=== PATIENT | female | born 2000 | race Hispanic/Latino ===

== ENCOUNTER 2023-05-14 23:47 | Emergency (ER) | payer BC ==
--- OUTSIDE RECORDS SUMMARY | 2023-05-15 00:07 | XMS REPORT | Continuity of Care Document ---
:2000 Author Organization [facility] t Address [address] [facility] [address] [place] [address] Care Team Providers Name Role Phone PCP, PATIENT DOES NOT HAVE A Primary Care Physician Unavaila JULIANNE Perez Attending Clinician Unavailable GREYSON HARRIS Attending Clinician Unavailable HEIDI GAN Attending Clinician Unavailable Heidi Gan MD Attending Clinician Julianne Kirby MD Attending Clinician Doctor Unassigned, [place] Attending Clinician Unavailable JAXON ETIENNE Attending Clinician Unavailable Rios Andrews MD Attending Clinician [phone] [facility] Attending Clinician Unavailable Brandon Munson MD Attending Clinician Deana Caicedo MD Attending Clinician DEANA CAICEDO Attending Clinician Unavailable MAIKEL AZEVEDO Attending Clinician Unavailable Pob, [facility] Attending Clinician Unavailable Julissa Buitrago MD Attending Clinician JULISSA BUITRAGO Attending Clinician Unavailable HEIDI GAN Admitting Clinician Unavailable Heidi Gan MD Admitting Clinician JULIANNE KIRBY Admitting Clinician Unavailable Payers Payer Name Policy Type Policy Number Effective Date Expiration Date S [facility] BCBS FED SELECT [id number] 2005 00:00:00 Problems Condition Condition Condition Status Onset Resolution Last Treating Co mments Source Name Details Category Date Date Treatment Clinician Date Left Left Disease Active Univers breast breast 01-04 ity of lump lump 00:00: [address] Allergies, Adverse Reactions, Alerts Allergy Allergy Status Severity Reaction(s) Onset Inactive Treating Comm ents Source Name Type Date Date Clinician NO KNOWN Drug Active Univers ALLERGIE Class ity of S [facility] Social History Social Habit Start Date Stop Date Quantity Comments Source History SDOH University o f Alcohol Frequency [place] [facility] History SDOH University o f Alcohol Std [place] [facility] Drinks [facility] History SDOH University o f Alcohol Binge [place] [facility] [place] History of Cigarette Smoker Universi ty of tobacco use [facility] Exposure to 2022-05-12 2022-05-22 Not sure [facility] SARS-CoV-2 00:00:00 14:01:00 [facility] (event) [place] Alcohol intake 2022-05-22 2022-05-22 0 /d University of 00:00:00 00:00:00 [facility] Tobacco use and 2022-05-11 2022-05-11 Smokeless tobacco Un iversity of exposure 00:00:00 00:00:[address] [facility] Alcohol Comment 2021-09-28 2021-09-28 social Universit y of 00:00:00 00:00:00 [facility] Sex Assigned At 2000 2000 Universit y of 00:00:00 00:00:00 [facility] Smoking Status Start Date Stop Date Source Smokes tobacco daily 2022-05-11 00:00:00 Univers ity [facility] Never smoked tobacco [facility] Medications Ordered Filled Start Stop Current Ordering Indication Dosage Frequency Signature Comments Components Source Medication Medication Date Date Medication? Clinician (SIG) Name Name lactated 2021-07 Yes 1000mL at 75 Univer s ringers IV 1-15 mL/hr, ity of infusion 18:00[place] 1[place] 1[place] 00 IV Medical Infusion, Branch CONTINUOUS , Starting on Sat05/15/22 at 1200, Until Discontinu ed, Routine, PACU lactated 2021-07 1000mL at 75 Unive rs ringers IV 1-15 11-15 mL/hr, ity of infusion 18:00: 21:52 1,000 mL, Daniel as 1,000 mL 00 :55 IV Medical Infusion, Branch CONTINUOUS , Starting on Sat05/15/22 at 1200, Until Sat05/15/22 at 1552, Routine, PACU FENTanyl PF 2021-07 Yes 25ug 25 mcg, Uni vers (SUBLIMAZE 1-15 Slow IV ity of (PF)) 17:51: Push, [place] injection 01 Q5MIN PRN, Medi tamika 25 mcg 4 doses, Branch Starting on Sat05/15/22 at 1151, Until Discontinu ed, Routine, Pain (scale 4-6), PACU ondansetron 2021-07 Yes 4mg 4 mg, Slow Univers (ZOFRAN 1-15 IV Push, ity of (PF)) 17:51: PRN, 1 [place] injection 4 01 dose, Medical mg Starting Branch on Sat05/15/22 at 1151, Until Discontinu ed, Routine, Nausea and Vomiting (N/V), PACU FENTanyl PF 2021-07- No 25ug 25 mcg, Un jayne (SUBLIMAZE 1-15 11-15 Slow IV ity o f (PF)) 17:51: 21:52 Push, [place] injection 01 :55 Q5MIN PRN, Medi tamika 25 mcg 4 doses, Branch Starting on Sat05/15/22 at 1151, Until Sat05/15/22 at 1552, Routine, Pain (scale 4-6), PACU ondansetron 2021-07- No 4mg 4 mg, Slow Univers (ZOFRAN 1-15 11-15 IV Push, ity of (PF)) 17:51: 21:52 PRN, 1 [place] injection 4 01 :55 dose, Medical mg Starting Branch on Sat05/15/22 at 1151, Until Sat05/15/22 at 1552, Routine, Nausea and Vomiting (N/V), PACU water for 2021-07 Yes PRN, Univers irrigation 1-15 Starting ity o f irrigation 15:49: on Sat [place] solution 05/15/22 Medical at 0949, Branch Until Discontinu ed, Routine, Intra-op hydrogen 2021-07 Yes PRN, Univers peroxide 3 1-15 Starting ity o f % topical 15:49: on e [place] solution 05/15/22 Medical at 0949, Branch Until Discontinu ed, Routine, Intra-op bupivacaine 2021-07 Yes PRN, Univer s (preserv -15 Starting ity of free) 0.5% 15:49: on Sat [place] (SENSORCAIN 00 05/15/22 [facility]) 0.5 at 0949, Branc h % (5 mg/mL) Intra-op 30 mL, NaCl 0.9% (NS) 30 mL water for 2021-07- No PRN, Univers irrigation 07-15 Starting ity of irrigation 15:49: 21:52 on Sat [place] solution 00 :55 05/15/22 Medical at 0949, Branch Until Sat05/15/22 at 1552, Routine, Intra-op hydrogen 2021-07- No PRN, Univers peroxide 3 07-15 Starting ity of % topical 15:49: 21:52 on Sat [place] solution 00 :55 05/15/22 Medical at 0949, Branch Until Sat05/15/22 at 1552, Routine, Intra-op bupivacaine 2021-07- No PRN, Unive rs (preserv 07-15 Starting ity of free) 0.5% 15:49: 21:52 on Sat [place] (SENSORCAIN 00 :55 05/15/22 [facility]) 0.5 at 0949, Branc h % (5 mg/mL) Intra-op 30 mL, NaCl 0.9% (NS) 30 mL lactated 2021-07- No 1000mL at 42 Unive rs ringers IV 1-15 11-15 mL/hr, ity of infusion 14:00: 14:13 1,000 mL, [place] as 1,000 mL 00 :00 IV Medical Infusion, Branch ONCE, 1 dose, On Sat05/15/22 at 0800, Routine, DSU Pre-op lactated 2021-07- No 1000mL at 42 Unive rs ringers IV 1-15 11-15 mL/hr, ity of infusion 14:00: 14:13 1,000 mL, [place] as 1,000 mL 00 :00 IV Medical Infusion, Branch ONCE, 1 dose, On 11/15/22 at 0800, Routine, DSU Pre-op acetaminoph 2021-07 Yes [id number] 1000mg Take 2 Univers en 500 mg 1-15 [id number] tablets by it y of tablet 00:00: mouth [place] 00 every 8 Medical (eight) Branch hours. celecoxib 2021-07 Yes [id number] 100mg Take 1 Univers (CELEBREX) 1-15 184054 capsule by i ty of 100 mg 00:00: mouth in [place] capsule 00 the Medical morning Branch and 1 capsule in the evening. Take with meals. acetaminoph 2021-07 Yes [id number] 1000mg Take 2 Univers en 500 mg 1-15 [id number] tablets by it y of tablet 00:00: mouth [place] 00 every 8 Medical (eight) Branch hours. celecoxib 2021-07 Yes [id number] 100mg Take 1 Univers (CELEBREX) 1-15 [id number] capsule by i ty of 100 mg 00:00: mouth in [place] capsule 00 the Medical morning Branch and 1 capsule in the evening. Take with meals. acetaminoph 2021-07 Yes [id number] 1000mg Take 2 Univers en 500 mg 1-15 [id number] tablets by it y of tablet 00:00: mouth [place] 00 every 8 Medical (eight) Branch hours. celecoxib 2021-07 Yes [id number] 100mg Take 1 Univers (CELEBREX) 1-15 [id number] capsule by i ty of 100 mg 00:00: mouth in [place] capsule 00 the Medical morning Branch and 1 capsule in the evening. Take with meals. acetaminoph 2021-07 Yes [id number] 1000mg Take 2 Univers en 500 mg 1-15 [id number] tablets by it y of tablet 00:00: mouth [place] 00 every 8 Medical (eight) Branch hours. celecoxib 2021-07 Yes [id number] 100mg Take 1 Univers (CELEBREX) 1-15 [id number] capsule by i ty of 100 mg 00:00: mouth in [place] capsule 00 the Medical morning Branch and 1 capsule in the evening. Take with meals. acetaminoph 2021-07 Yes [id number] 1000mg Take 2 Univers en 500 mg 1-15 [id number] tablets by it y of tablet 00:00: mouth [place] 00 every 8 Medical (eight) Branch hours. celecoxib 2021-07 Yes [id number] 100mg Take 1 Univers (CELEBREX) 1-15 [id number] capsule by i ty of 100 mg 00:00: mouth in [place] capsule 00 the Medical morning Branch and 1 capsule in the evening. Take with meals. HYDROcodone 2021-07 4647 1{tbl} Take 1 U nivers -acetaminop 1-15 11-23 tablet by it y of hen 5-325 00:00: 05:59 mouth [place] mg tablet 00 :00 every 6 Medical (six) Branch hours as needed for Pain (scale 4-6) or Pain (scale 7-10) for up to 7 days. Indication s: acute pain HYDROcodone 2021-07 4647 1{tbl} Take 1 U nivers -acetaminop 1-15 11-23 tablet by it y of hen 5-325 00:00: 05:59 mouth [place] mg tablet 00 :00 every 6 Medical (six) Branch hours as needed for Pain (scale 4-6) or Pain (scale 7-10) for up to 7 days. Indication s: acute pain HYDROcodone 2021-0747 1{tbl} Take 1 U nivers -acetaminop 1-15 11-23 tablet by it y of hen 5-325 00:00: 05:59 mouth [place] mg tablet 00 :00 every 6 Medical (six) Branch hours as needed for Pain (scale 4-6) or Pain (scale 7-10) for up to 7 days. Indication s: acute pain HYDROcodone 2021-07 4647 1{tbl} Take 1 U nivers -acetaminop 1-15 11-23 tablet by it y of hen 5-325 00:00: 05:59 mouth [place] mg tablet 00 :00 every 6 Medical (six) Branch hours as needed for Pain (scale 4-6) or Pain (scale 7-10) for up to 7 days. Indication s: acute pain HYDROcodone 2021-07 4647 1{tbl} Take 1 U nivers -acetaminop 1-15 11-23 tablet by it y of hen 5-325 00:00: 05:59 mouth [place] mg tablet 00 :00 every 6 Medical (six) Branch hours as needed for Pain (scale 4-6) or Pain (scale 7-10) for up to 7 days. Indication s: acute pain norethindro 2021- Yes [id number] 1{tbl} Take 1 Univers ne-ethinyl 7-01 tablet by ity of estradiol 00:00: mouth [place] (LOESTRIN 00 daily. Medical ,) Branch 1-20 mg-mcg per tablet norethindro 2022-0 Yes [id number] 1{tbl} Take 1 Univers ne-ethinyl 7-01 tablet by ity of estradiol 00:00: mouth [place] (LOESTRIN 00 daily. Medical ,) Branch 1-20 mg-mcg per tablet norethindro 2022-0 Yes [id number] 1{tbl} Take 1 Univers ne-ethinyl 7-01 tablet by ity of estradiol 00:00: mouth [place] (LOESTRIN 00 daily. Medical ,) Branch 1-20 mg-mcg per tablet norethindro 2022-0 Yes [id number] 1{tbl} Take 1 Univers ne-ethinyl 7-01 tablet by ity of estradiol 00:00: mouth [place] (LOESTRIN 00 daily. Medical ,) Branch 1-20 mg-mcg per tablet norethindro 2022-0 Yes [id number] 1{tbl} Take 1 Univers ne-ethinyl 7-01 tablet by ity of estradiol 00:00: mouth [place] (LOESTRIN 00 daily. Medical ,) Branch 1-20 mg-mcg per tablet norethindro 2022-0 Yes [id number] 1{tbl} Take 1 Univers ne-ethinyl 7-01 tablet by ity of estradiol 00:00: mouth [place] (LOESTRIN 00 daily. Medical ,) Branch 1-20 mg-mcg per tablet norethindro 2022-0 Yes [id number] 1{tbl} Take 1 Univers ne-ethinyl 7-01 tablet by ity of estradiol 00:00: mouth [place] (LOESTRIN 00 daily. Medical ,) Branch 1-20 mg-mcg per tablet norethindro 2022-0 Yes [id number] 1{tbl} Take 1 Univers ne-ethinyl 7-01 tablet by ity of estradiol 00:00: mouth [place] (LOESTRIN 00 daily. Medical ,) Branch 1-20 mg-mcg per tablet metroNIDAZO 2-0 Yes [id number] 500mg Take 1 Univers LE 500 mg 4-01 tablet by ity o f tablet 00:00: mouth [place] 00 every 12 Medical (twelve) Branch hours. metroNIDAZO 2-0 Yes [id number] 500mg Take 1 Univers LE 500 mg 4-01 tablet by ity o f tablet 00:00: mouth [place] 00 every 12 Medical (twelve) Branch hours. metroNIDAZO 2-0 Yes [id number] 500mg Take 1 Univers LE 500 mg 4-01 tablet by ity o f tablet 00:00: mouth [place] 00 every 12 Medical (twelve) Branch hours. metroNIDAZO 2-0 Yes [id number] 500mg Take 1 Univers LE 500 mg 4-01 tablet by ity o f tablet 00:00: mouth [place] 00 every 12 Medical (twelve) Branch hours. metroNIDAZO 2-0 Yes [id number] 500mg Take 1 Univers LE 500 mg 4-01 tablet by ity o f tablet 00:00: mouth [place] 00 every 12 Medical (twelve) Branch hours. metroNIDAZO 2-0 Yes [id number] 500mg Take 1 Univers LE 500 mg 4-01 tablet by ity o f tablet 00:00: mouth [place] 00 every 12 Medical (twelve) Branch hours. metroNIDAZO 2-0 Yes [id number] 500mg Take 1 Univers LE 500 mg 4-01 tablet by ity o f tablet 00:00: mouth [place] 00 every 12 Medical (twelve) Branch hours. metroNIDAZO 2-0 Yes [id number] 500mg Take 1 Univers LE 500 mg 4-01 tablet by ity o f tablet 00:00: mouth [place] 00 every 12 Medical (twelve) Branch hours. ISOtretinoi 2020-0 Yes 30mg Take 1 Univ ers n 30 mg 3-18 capsule by ity of capsule 00:00: mouth [place] 00 daily. Medical Branch ISOtretinoi 2020-0 Yes 30mg Take 1 Univ ers n 30 mg 3-18 capsule by ity of capsule 00:00: mouth [place] 00 daily. Medical Branch ISOtretinoi 202-0 Yes 30mg Take 1 Univ ers n 30 mg 3-18 capsule by ity of capsule 00:00: mouth [place] 00 daily. Medical Branch ISOtretinoi 2020-0 Yes 30mg Take 1 Univ ers n 30 mg 3-18 capsule by ity of capsule 00:00: mouth [place] 00 daily. Medical Branch ISOtretinoi 0 Yes 30mg Take 1 Univ ers n 30 mg 3-18 capsule by ity of capsule 00:00: mouth [place] 00 daily. Medical Branch ISOtretinoi 2020-0 Yes 30mg Take 1 Univ ers n 30 mg 3-18 capsule by ity of capsule 00:00: mouth [place] 00 daily. Medical Branch ISOtretinoi 2020-0 Yes 30mg Take 1 Univ ers n 30 mg 3-18 capsule by ity of capsule 00:00: mouth [place] 00 daily. Medical Branch ISOtretinoi 2020-0 Yes 30mg Take 1 Univ ers n 30 mg 3-18 capsule by ity of capsule 00:00: mouth [place] 00 daily. Medical Branch etonogestre 2018-2021- No 68mg 68 mg by U david nolan 12-05 Subdermal ity of (NEXPLANON) 00:00: 00:00 route once [place] 68 mg 00 :00 now. Medical implant Branch PANOXYL 10 2018-0 Yes Univers % external 3-25 ity of wash 00:00: [place] 00 Medical Branch PANOXYL 10 2018-0 Yes Univers % external 3-25 ity of wash 00:00: [place] 00 Medical Branch PANOXYL 10 2018-0 Yes Univers % external 3-25 ity of wash 00:00: [place] 00 Medical Branch PANOXYL 10 2018-0 Yes Univers % external 3-25 ity of wash 00:00: [place] 00 Medical Branch PANOXYL 10 2019-0 Yes Univers % external 3-25 ity of wash 00:00: [place] 00 Medical Branch PANOXYL 10 2019-0 Yes Univers % external 3-25 ity of wash 00:00: [place] 00 Medical Branch PANOXYL 10 2019-0 Yes Univers % external 3-25 ity of wash 00:00: [place] 00 Medical Branch PANOXYL 10 2018-0 Yes Univers % external 3-25 ity of wash 00:00: [place] 00 Medical Branch Vital Signs Vital Name Observation Time Observation Value Comments Source Systolic blood 2022-05-22 20:19:00 98 mm[Hg] Univer sity of pressure [facility] Diastolic blood 2022-05-22 20:19:00 67 mm[Hg] Unive rsity of pressure [facility] Heart rate 2022-05-22 20:19:00 81 /min [facility] [place] [facility] Body temperature 2022-05-22 20:19:00 36.61 Liudmila Univ ers[facility] [place] [facility] Respiratory rate 2022-05-22 20:19:00 16 /min Univ ers[facility] [place] [facility] Body height 2022-05-22 20:19:00 152.4 cm [facility] [place] [facility] Body weight 2022-05-22 20:19:00 54.795 kg [facility] [place] [facility] BMI 2022-05-22 20:19:00 23.59 kg/m2 [facility]i [facility] [place] [facility] Oxygen saturation in 2022-05-22 20:19:00 99 /min University of Arterial blood by [place] Medi tamika Pulse oximetry Branch Heart rate 2022-05-15 19:34:00 71 /min [facility]i ty [facility] [place] [facility] Respiratory rate 2022-05-15 19:34:00 18 /min Univ ersity [facility] [place] [facility] Oxygen saturation in 2022-05-15 19:34:00 99 /min University of Arterial blood by [place] [employer] tamika Pulse oximetry Branch Systolic blood 2022-05-15 19:28:00 98 mm[Hg] Univer sity of pressure [place] [facility] Diastolic blood 2022-05-15 19:28:00 61 mm[Hg] Unive rsity of pressure [place] [facility] Body temperature 2022-05-15 18:02:00 37.11 Liudmila Univ [facility] [place] [facility] Body height 2022-05-11 14:39:00 152.4 cm [facility]i ty [facility] [place] [facility] Body weight 2022-05-11 14:39:00 55.9 kg [facility] [place] [facility] BMI 2022-05-11 14:39:00 24.07 kg/m2 [facility] [place] [facility] Systolic blood 2022-05-15 13:59:00 114 mm[Hg] Univer sity of pressure [place] [facility] Diastolic blood 2022-05-15 13:59:00 85 mm[Hg] Unive rsity of pressure [place] [facility] Heart rate 2022-05-15 13:59:00 71 /min [facility]i ty [facility] [place] [facility] Body temperature 2022-05-15 13:59:00 36.67 Liudmila Univ [facility] [place] [facility] Respiratory rate 2022-05-15 13:59:00 17 /min Univ [facility]ity [facility] [place] [facility] Oxygen saturation in 2022-05-15 13:59:00 98 /min University of Arterial blood by [facility] tamika Pulse oximetry Branch Body height 2022-05-11 14:39:00 152.4 cm Universi ty [facility] [place] [facility] Body weight 2022-05-11 14:39:00 55.9 kg [facility] [place] [facility] BMI 2022-05-11 14:39:00 24.07 kg/m2 [facility] [place] [facility] Systolic blood 2022-05-08 19:53:00 101 mm[Hg] Univer sity of pressure [place] [facility] Diastolic blood 2022-05-08 19:53:00 68 mm[Hg] Unive rsity of pressure [place] [facility] Heart rate 2022-05-08 19:53:00 69 /min [facility] [place] [facility] Body temperature 2022-05-08 19:53:00 36.56 Liudimla Univ [facility] [place] [facility] Respiratory rate 2022-05-08 19:53:00 16 /min Univ [facility] [place] [facility] Body height 2022-05-08 19:53:00 152.4 cm [facility] [place] [facility] Body weight 2022-05-08 19:53:00 55.883 kg [facility] [place] [facility] BMI 2022-05-08 19:53:00 24.06 kg/m2 [facility] [place] [facility] Oxygen saturation in 2022-05-08 19:53:00 97 /min University of Arterial blood by [facility] Pulse oximetry Branch Systolic blood 2021-12-29 13:43:00 103 mm[Hg] Univer sity of pressure [place] [facility] Diastolic blood 2021-12-29 13:43:00 68 mm[Hg] Unive rsity of pressure [place] [facility] Heart rate 2021-12-29 13:43:00 62 /min [facility] [place] [facility] Body temperature 2021-12-29 13:43:00 36.83 Liudmila Univ [facility] [place] [facility] Respiratory rate 2021-12-29 13:43:00 18 /min Univ [facility] [place] [facility] Body height 2021-12-29 13:43:00 152.4 cm [facility] [place] [facility] Body weight 2021-12-29 13:43:00 56.7 kg [facility] BMI 2021-12-29 13:43:00 24.41 kg/m2 [facility] Procedures Procedure Date / Time Performed Performing Clinician Sourc e [place] TIME OR 2022-05-15 17:04:13 Heidi Gan [facility] (NON-REPORTABLE) Medical Branch FL TIME OR 2022-05-15 17:04:13 Heidi Gan [facility] (NON-REPORTABLE) Medical [place] BREAST LUMPECTOMY 2022-05-15 15:06:00 Heidi Gan [facility] DAY SURGERY - ADC 2022-05-15 06:01:00 Doctor Unassigned, No [facility] [place] Name Medical Branch CONSENT/REFUSAL FOR 2022-05-09 06:01:00 Doctor Unassigned, No Un [facility] [place] DIAGNOSIS AND Name Medical Branch TREATMENT DISCLOSURE AND 2022-05-09 06:01:00 Doctor Unassigned, No Univer sity of [place] CONSENT, MEDICAL AND Name Medical [facility] SURGICAL PROCEDURES CONSENT/REFUSAL FOR 2022-05-09 06:01:00 Doctor Unassigned, No Un iversity of [place] DIAGNOSIS AND Name Medical Branch TREATMENT DISCLOSURE AND 2022-05-09 06:01:00 Doctor Unassigned, No Univer sity of [place] CONSENT, MEDICAL AND Name Medical Bra [facility] SURGICAL PROCEDURES DISCLOSURE AND 2022-05-08 06:01:00 Doctor Unassigned, No Univer sity of [place] CONSENT, MEDICAL AND Name Medical Bra [facility] SURGICAL PROCEDURES DISCLOSURE AND 2022-05-08 06:01:00 Doctor Unassigned, No Univer sity of [place] CONSENT, MEDICAL AND Name Medical Bra [facility] SURGICAL PROCEDURES Encounters Start End Encounter Admission Attending Care Care Encounter Source Date/Time Date/Time Type Type Clinicians Facility Department ID 2022-12-21 2022-12-21 Outpatient Angy KIRBY [facility] [id number] Univers 15:00:00 15:00:00 JULIANNE barrios [facility] 2022-10-18 2022-10-18 Outpatient CARMEN MORALES [id number] [place] 12:14:02 12:14:02 [id number] F [place] 2022-10-15 2022-10-15 Outpatient CARMEN MORALES [id number] [place] 13:24:50 13:24:50 [id number] F [place] 2022-05-22 2022-05-22 [facility] [id number] Univers 14:15:00 15:03:07 HEIDI barrios [facility] 2022-05-22 2022-05-22 Office [facility] [id number] Univers 14:15:00 15:03:07 Visit Heidi BONILLATON [id number] i ty of [place] [id number] PROF[place] [id number] Oh dical NAL 419 [facility] 2022-05-22 2022-05-22 [facility] [id number] Univers 00:00:00 00:00:00 (Out) Heidi Annika IRENETON [id number] i ty [place] [id number] [id number] Oh dicma NAL [address] [place] [address] 2022-05-15 2022-05-15 Outpatient [facility] [id number] Univers 07:51:00 13:50:00 HEIDI barrios [facility] 2022-05-15 2022-05-15 [facility] [id number] Univers 07:51:00 13:50:00 Encounter Heidi Annika IREN[place] [id number] ity [id number] SURGICAL [id number] [facility] 071 [place] 2022-05-15 2022-05-15 Surgery [facility] [id number] Univers 09:17:00 11:41:00 Heidi Annika [place] [id number] i ty [id number] SURGICAL [id number] [facility] 020 [place] 2022-05-08 2022-05-08 Outpatient R [facility] [id number] Univers 13:30:00 15:19:14 [facility] 2022-05-08 2022-05-08 Office [facility] [id number] Univers 13:30:00 15:19:14 Visit Heidi RUIZ [id number] i ty [facility] [id number] [id number] [facility] 419 [facility] 2021-12-29 2021-12-29 [facility] [id number] Univers 08:00:00 09:19:41 Visit Julianne RUIZ [id number] ity [facility] [id number] [id number] Oh dic[address] 2021-12-29 2021-12-29 [facility] [id number] Univers 08:00:00 09:19:41 [facility] 2021-12-29 2021-12-29 Outpatient R [facility] [id number] Univers 08:00:00 08:00:00 [facility] 2021-12-29 2021-12-29 Orders Doctor BROOKS [id number] Univers 00:00:00 00:00:00 Only Unassigned, CLEO [id number] ity of [place] [facility] [id number] Daniel as [id number] [address] 2021-10-23 2021-10-23 Outpatient R [facility] [id number] Univers 10:00:00 10:00:[address] [facility] 2021-10-17 2021-10-17 [facility] [id number] Univers 00:00:00 00:00:00 Julianne RUIZ [id number] ity of [facility] [id number] [id number] Oh dic[address] 2021-10-11 2021-10-11 Outpatient [facility] [id number] Univers 09:00:00 09:00:00 JULIANNE ityessica [facility] 2021-09-29 2021-09-29 Case Ad, [facility] [id number] Univers 00:00:00 00:00:00 Management Julianne RUIZ [id number] ity of [id number] [id number] Oh dical NAL [address] [place] [address] 2021-09-28 2021-09-28 Outpatient R ADUM, [facility] [id number] Univers 10:30:00 11:34:56 JULIANNE ity [facility] 2021-09-28 2021-09-28 Office Ad, [facility] [id number] Univers 10:30:00 11:34:56 Visit Julianne RUIZ [id number] ity [facility] [id number] [id number] Oh dical [address] 2021-09-28 2021-09-28 Outpatient R ADUM, [facility] [id number] Univers 10:30:00 11:34:56 JULIANNE ity [facility] 2021-09-28 2021-09-28 Office Ad, [facility] [id number] Univers 10:30:00 11:00:00 Visit Julianne RUIZ [id number] ity [facility] [id number] [id number] Oh dical NAL [address] [place] [address] 2021-09-28 2021-09-28 Outpatient R ADUM, [facility] [id number] Univers 10:30:00 10:30:00 JULIANNE ity [facility] 2021-09-28 2021-09-28 Outpatient R ADUM, [facility] [id number] Univers 10:30:00 10:30:00 JULIANNE ity [facility] 2021-09-28 2021-09-28 Letter Ad, [facility] [id number] Univers 00:00:00 00:00:00 (Out) Julianne BONILLATON [id number] ity of [facility] [id number] [phone] [place] dical NAL 134 [facility] 2021-09-07 2021-09-07 Outpatient R AD, [facility] [id number] Univers 14:00:00 14:00:00 JULIANNE ityessica [facility] 2020-12-23 2020-12-23 Outpatient R AD, [facility] [id number] Univers 09:00:00 09:00:00 JULIANNE ity [facility] 2020-12-19 2020-12-19 Outpatient R AD, [facility] [id number] Univers 09:00:00 09:00:00 [facility]-10-[facility] 2020-10-20 Outpatient R JAIMIE, [facility] [id number] Univers 10:45:00 10:45:00 JAXON barrios [facility] 2020-10-19 2020-10-19 [facility] 1.2.840.114 [id number] Univers 11:00:43 11:39:59 Visit Julianne Sara Ruiz [id number] it[id number] [phone] [place] dic[address] 2020-10-19 2020-10-19 [facility] [id number] Univers 11:00:00 11:00:00 JULIANNE barrios [facility] 2020-09-15 2020-09-15 Telephone [facility] 1.2.840.114 [id number] Univers 00:00:00 00:00:00 Rios DAWKINSPEC [id number] [id number] [phone] [address] [facility] 2020-09-15 2020-09-15 Telephone [facility] [id number] Univers 00:00:00 00:00:00 Rios DAWKINSPEC [id number] [id number] [phone] [address] [facility] 2020-09-12 2020-09-12 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 10 it[place] of [place] [id number] [facility] [phone] [address] [facility] 2020-08-11 2020-08-11 Outpatient Angy CAICEDO [facility] [id number] Univers 16:30:00 16:30:00 DEANA [facility] 2020-08-05 2020-08-05 Outpatient Angy CAICEDO [facility] [id number] Univers 10:00:00 10:00:00 DEANA [facility] 2020-08-04 2020-08-04 [facility] [id number] Univers 15:40:00 15:40:00 [facility]04 2020-08-04 Orders Doctor GUY 1.2.840.114 [id number] Univers 00:00:00 00:00:00 Only Unassigned, CLEO [id number] ity of [place] [facility] [id number] Daniel as [phone] [address] 2020-03-01 2020-03-01 Office [facility] [id number] Univers 14:16:02 14:31:02 Visit Heidi Roblero Kb [id number] i ty of [id number] [phone] Oh dic[address] 2020-03-01 2020-03-01 [facility] [id number] Univers 14:15:00 14:15:00 HEIDI [facility] 2020-02-23 2020-02-23 [facility] [id number] Univers 14:00:00 14:00:00 HEIDI [facility] 2020-02-16 2020-02-16 Office [facility] [id number] Univers 13:35:47 15:46:51 Visit Heidi Annika Kb [id number] i ty [id number] [phone] [address] 2020-02-16 2020-02-16 [facility] [id number] Univers 13:30:00 13:30:00 HEIDI [facility] 2020-02-16 2020-02-16 Orders Doctor GUY 1.2.840.114 [id number] Univers 00:00:00 00:00:00 Only Unassigned, CLEO [id number] ity of [place] [facility] [id number] Daniel as [phone] [address] 2020-02-09 2020-02-09 Outpatient [facility] [id number] Univers 16:00:00 16:00:00 HEIDI barrios [facility] 2020-01-28 2020-01-28 Outpatient R JOLLY [facility] [id number] Univers 13:30:00 13:30:00 MAIKEL ity [facility] 2020-01-05 2020-01-05 Outpatient R AD, [facility] [id number] Univers 14:00:00 14:00:00 JULIANNE ity [facility] 2020-01-05 2020-01-05 [facility] 1.2.840.114 [id number] Univers 08:04:46 08:34:46 ne Visit Julianne Nolan Molena [id number] it[place] of [id number] [phone] Oh dic[address] 2019-12-24 2019-12-24 Outpatient R AD, [facility] [id number] Univers 11:30:20 23:59:00 JULIANNE ity [facility] 2019-12-24 2019-12-24 [facility] 1.2.840.114 [id number] Univers 11:30:00 23:59:00 Encounter Julianne Nolan Molena [id number] it[place] of [id number] [phone] [facility] [address] [place] [address] 2019-12-17 2019-12-17 [facility] [id number] Univers 00:00:00 00:00:00 Julianne Sara Molena [id number] ity of [id number] [phone] Oh dical nal [address] [place] [address] 2019-12-16 2019-12-16 [facility] 1.2.840.114 [id number] Univers 00:00:00 00:00:00 Management Julianne Nolan Molena [id number] ity of [id number] [phone] Oh dicma nal [address] [place] [address] 2019-12-15 2019-12-15 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 Froylan, [facility] [id number] [id number] Univers 17:00:06 17:15:06 Visit Julissa Buitrago [id number] ity of [place] [id number] [place] Professio [phone] Oh dical nal [address] [facility] 2019-12-15 2019-12-15 Office Julianne Kirby [facility] 1.2.840.114 [id number] Univers 15:21:57 16:43:33 Visit Julissa Buitrago Kb [id number] ity of [id number] [phone] [facility] 134 [facility] 2019-12-15 2019-12-15 Outpatient R JULISSA BUITRAGO [facility] [id number] Univers 15:00:00 15:00:[address] [facility] 2019-12-15 2019-12-15 Orders Doctor BROOKS [id number] Univers 00:00:00 00:00:00 Only Unassigned, CLEO [id number] ity of [place] [facility] [id number] Daniel as [phone] [address] 2019-10-06 2019-10-06 Telephone Julissa Buitrago [facility] 1.2.840.114 [id number] Univers 00:00:00 00:00:00 Juan Carlos Ruiz [id number] i ty of [id number] [phone] [facility] 134 [facility] Results This patient has no known results.
[2023-05-15] MEDS ORDERED: ONDANSETRON 4 MG/2 ML VIAL ONE (01:04)
[2023-05-15 01:14] LABS: Specific Gravity 1.015 (1.005-1.030)
[2023-05-15 01:15] LABS: Absolute Lymphocytes (CBC) 3.5 K/uL (0.7-4.9); Hematocrit 36.9 % (36.0-45.0); MCV 93.3 fL (80-100); MPV 8.3 fL (7.6-11.3); Platelets 270 thou/uL (152-406); RBC Red Blood Cell Count 3.96 M/uL (3.86-4.86)
[2023-05-15 01:22] LABS: Specific Gravity 1.015 (1.005-1.030); Urine Bacteria <20 /HPF (<20); Urine Bilirubin NEGATIVE (Negative); Urine Blood Negative (Negative); Urine Clarity Extremely Turbid (Clear); Urine Color Light-Yellow (Yellow); Urine Glucose NEGATIVE (Negative); Urine Mucus Slight /HPF (None Seen); Urine Protein NEGATIVE (Negative); Urine RBC <5 /HPF (None Seen); Urine Urobilinogen Normal (Normal)
[2023-05-15 01:45] LABS: Potassium 3.5 mEq/L (3.5-5.1)
--- NOTE | 2023-05-15 02:14 | ER ---
Nurse's Notes [facility] Name: Marcela Gudino Age: 22 yrs Sex: Female : 2000 Arrival Date: 05/14/2023 Time: 23:47 Bed 19 Private MD: Diagnosis: Nausea with vomiting, unspecified; related conditions, unspecified, first trimester;Syncope Presentation: 05/15 00:31 Chief complaint: Patient states: pt reports fainting and hitting head at 10AM yesterday km8 morning and now having nausea and vomiting. Coronavirus screen: Client denies travel out of the [place] in the last 14 days. Ebola Screen: No symptoms or risks identified at this time. Initial Sepsis Screen: Does the patient meet any 2 criteria? No. Patient's initial sepsis screen is negative. Does the patient have a suspected source of infection? No. Patient's initial sepsis screen is negative. Risk Assessment: Do you want to hurt yourself or someone else? Patient reports no desire to harm self or others. Onset of symptoms was May 14, 2023. 00:31 Method Of Arrival: Ambulatory km8 00:31 Acuity: ALLIE 3 km8 Triage Assessment: 00:34 General: Appears in no apparent distress. comfortable, Behavior is calm, cooperative, km8 appropriate for age. Pain: Complains of pain in head and abdomen Pain currently is 4 out of 10 on a pain scale. EENT: No signs and/or symptoms were reported regarding the EENT system. Neuro: Level of Consciousness is awake, alert, obeys commands, Oriented to person, place, time, situation. Cardiovascular: Denies chest pain, shortness of breath, Capillary refill < 3 seconds Patient's skin is warm and dry. Respiratory: Airway is patent Respiratory effort is even, unlabored, Respiratory pattern is regular, symmetrical. GI: Abdomen is non-distended, Reports nausea, vomiting. : No signs and/or symptoms were reported regarding the genitourinary system. Derm: No signs and/or symptoms reported regarding the dermatologic system. Skin is intact, is healthy with good turgor, Skin is dry, Skin is pink, warm \T\ dry. normal, Skin temperature is warm. Musculoskeletal: No signs and/or symptoms reported regarding the musculoskeletal system. Range of motion: intact in all extremities. 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 Flu vaccine is not up to date. - Social history:: Smoking status: Patient/guardian denies using tobacco, Patient/guardian denies using alcohol, street drugs. Screenin:38 [facility] ED Fall Risk Assessment (Adult) History of falling in the last 3 months, km8 including since admission No falls in past 3 months (0 pts) Confusion or Disorientation No (0 pts) Intoxicated or Sedated No (0 pts) Impaired Gait No (0 pts) Mobility Assist Device Used No (0 pt) Altered Elimination No (0 pt) Score/Fall Risk Level 0 - 2 = Low Risk Oriented to surroundings, Maintained a safe environment, Educated pt \T\ family on fall prevention, incl call for assistance when getting out of bed, Assessed \T\ reinforced patient's understanding of fall precautions. Abuse screen: Denies threats or abuse. Denies injuries from another. Nutritional screening: No deficits noted. Tuberculosis screening: No symptoms or risk factors identified. Assessment: 00:38 General: see triage notes/assessment. GI: Abdomen is flat, non-distended, Reports km8 nausea, vomiting. 01:14 Reassessment: Patient appears in no apparent distress at this time. No changes from km8 previously documented assessment. Patient and/or family updated on plan of care and expected duration. Pain level reassessed. Patient is alert, oriented x 3, equal unlabored respirations, skin warm/dry/pink. 02:11 Reassessment: Patient appears in no apparent distress at this time. Patient and/or 8 family updated on plan of care and expected duration. Pain level reassessed. Patient is alert, oriented x 3, equal unlabored respirations, skin warm/dry/pink. Patient states symptoms have improved. Vital Signs: 00:03 BP 113 / 63; Pulse 69; Resp 18; Temp 98.6(O); Pulse Ox 100% on R/A; Weight 58.97 kg; oe Height 5 ft. 0 in. ; Pain 0/10; 01:00 BP 111 / 62; Pulse 61; Resp 16; Pulse Ox 100% on R/A; km8 01:30 BP 102 / 55; Pulse 84; Resp 16; Pulse Ox 100% on R/A; km8 02:00 BP 94 / 59; Pulse 61; Resp 16; Pulse Ox 100% on R/A; km8 00:03 Body Mass Index 25.39 (58.97 kg, 152.4 cm) oe 00:03 Pain Scale: Adult oe ED Course: 05/14 23:56 Patient arrived in ED. gm2 23:59 Nelson Guerra PA is PHCP. cp 23:59 Jonh Mckeon MD is Attending Physician. cp 05/15 00:25 Bhumika Abad, ROB is Primary Nurse. km8 00:34 Triage completed. km8 00:34 Arm band placed on right wrist. km8 00:38 Patient has correct armband on for positive identification. Bed in low position. Call km8 light in reach. Side rails up X 1. Client placed on continuous cardiac and pulse oximetry monitoring. NIBP monitoring applied. Door closed. Noise minimized. Warm blanket given. 00:38 Patient maintains SpO2 saturation greater than 95% on room air. km8 00:47 Abo/rh Typing Sent. km8 00:48 Basic Metabolic Panel Sent. 8 00:48 CBC with Diff Sent. km8 00:48 Test, Urine Sent. 8 00:48 Quantitative Hcg Sent. 8 00:48 Urinalysis w/ reflexes Sent. 8 00:48 Inserted saline lock: 20 gauge in right antecubital area, using aseptic technique. km8 Blood collected. 00:50 CT Head Brain wo Cont In Process Unspecified. EDMS 01:39 US Transvaginal Ob In Process Unspecified. EDMS 02:10 Diet: Patient given snack. Tolerated well. km8 02:26 No provider procedures requiring assistance completed. IV discontinued, intact, pf1 bleeding controlled, No redness/swelling at site. Pressure dressing applied. 02:27 Provided Education on: prescription education . pf1 Administered Medications: 00:56 Drug: NS 0.9% IV 1000 ml IV at 1 bolus Per protocol; 1000 mL bolus Route: IV; Rate: 1 km8 bolus; Site: right antecubital; 02:11 Follow up: IV Status: Completed infusion; IV Intake: 1000ml km8 00:56 Drug: Ondansetron IVP 4 mg IVP once; over 2 minutes Route: IVP; Site: right antecubital;km8 01:15 Follow up: Response: No adverse reaction km8 00:56 Drug: Famotidine IVP 20 mg IVP once; dilute with 10 mL 0.9% NaCl; give over 2 minutes km8 Route: IVP; Site: right antecubital; 01:14 Follow up: Response: No adverse reaction km8 Medication: 02:27 VIS not applicable for this client. pf1 Intake: 02:11 IV: 1000ml; Total: 1000ml. km8 Outcome: 02:14 Discharge ordered by MD. cp 02:27 Discharged to home ambulatory, with family, pf1 02:27 Condition: improved 02:27 Discharge instructions given to patient, family, Instructed on discharge instructions, follow up and referral plans. Demonstrated understanding of instructions, follow-up care, medications, Prescriptions given X 1, 02:27 Patient left the ED. pf1 Signatures: Dispatcher [employer] EDMS Nelson Guerra PA PA cp Espinosa, Orlando oe Finley, Pamala, RN RN pf1 Teresita Kothari 2 Bhumika Abad RN RN km8
--- NOTE | 2023-05-15 02:14 | EDPHYS ---
Physician Documentation [facility] Name: Marcela Gudino Age: 22 yrs Sex: Female : 2000 Arrival Date: 05/14/2023 Time: 23:47 Bed 19 Private MD: ED Physician Jonh Mckeon HPI: 05/15 00:05 This 22 yrs old Female presents to ER via Ambulatory with complaints of cp Vomiting, Fainting, Fever. 00:05 The patient presents to the emergency department with nausea, that is moderate, cp vomiting, that is intermittent, described as bilious. 00:05 Possible causes: , reports recent positive home test. cp 00:05 Associated signs and symptoms: Pertinent positives: fever, nausea, syncopal episode cp causing patient to hit head yesterday morning, now with headache, Pertinent negatives: abdominal pain, diarrhea. 00:05 Severity of symptoms: in the emergency department the symptoms are unchanged despite cp home interventions. REPAIRER ENGINE PRODUCTION: 00:34 unknown 8 Historical: - Allergies: 00:34 No Known Allergies; km8 - Home Meds: 00:34 Vitamin Oral [Active]; km8 - PMHx: 00:34 None; km8 - PSHx: 00:34 bilateral breast lump removal; km8 - Immunization history:: Adult Immunizations up to date, Client reports having NOT received the Covid vaccine. Flu vaccine is not up to date. - Social history:: Smoking status: Patient/guardian denies using tobacco, Patient/guardian denies using alcohol, street drugs. ROS: 00:10 Constitutional: Positive for poor PO intake, Negative for body aches, chills, fever, cp 00:10 Cardiovascular: Negative for chest pain, edema, palpitations, cp 00:10 Eyes: Negative for injury, pain, redness, and discharge, cp 00:10 ENT: Negative for drainage from ear(s), ear pain, sore throat, difficulty swallowing, difficulty handling secretions, 00:10 Respiratory: Negative for cough, shortness of breath, wheezing, 00:10 Abdomen/GI: Positive for nausea and vomiting, anorexia, Negative for diarrhea, constipation, hematemesis, 00:10 Neuro: Positive for headache, syncope, cp 00:10 : Negative for urinary symptoms, pelvic pain, vaginal bleeding, vaginal discharge, cp 00:10 All other systems are negative, Exam: 00:15 Constitutional: The patient appears in no acute distress, alert, awake, non-toxic, well cp developed, well nourished, 00:15 Head/face: Noted is contusion, that is superficial, of the forehead, tenderness, that cp is mild, of the forehead, 00:15 Eyes: Periorbital structures: appear normal, Pupils: equal, round, and reactive to light and accomodation, Extraocular movements: intact throughout, Conjunctiva: normal, no exudate, no injection, Sclera: no appreciated abnormality, Lids and lashes: appear normal, bilaterally, 00:15 ENT: External ear(s): are unremarkable, Ear canal(s): are normal, clear, TM's: dullness, bilaterally, Nose: is normal, Mouth: Lips: moist, Oral mucosa: pink and intact, moist, Posterior pharynx: is normal, airway is patent, no erythema, no exudate, 00:15 Neck: C-spine: vertebral tenderness, is not appreciated, crepitus, is not appreciated, ROM/movement: is normal, is supple, without pain, no range of motions limitations, 00:15 Chest/axilla: Inspection: normal, 00:15 Cardiovascular: Rate: normal, Rhythm: regular, 00:15 Respiratory: the patient does not display signs of respiratory distress, Respirations: normal, no use of accessory muscles, no retractions, labored breathing, is not present, Breath sounds: are clear throughout, no decreased breath sounds, no stridor, no wheezing, 00:15 Abdomen/GI: Inspection: abdomen appears normal, Bowel sounds: active, all quadrants, Palpation: soft, in all quadrants, nontender, in all quadrants, 00:15 Back: pain, is absent, ROM is normal, 00:15 Neuro: Orientation: to person, place \T\ time. Mentation: is normal, Cerebellar function: is grossly normal, Motor: moves all fours, strength is normal, Sensation: is normal, 00:30 ECG was reviewed by the Attending Physician. cp Vital Signs: 00:03 BP 113 / 63; Pulse 69; Resp 18; Temp 98.6(O); Pulse Ox 100% on R/A; Weight 58.97 kg; oe Height 5 ft. 0 in. ; Pain 0/10; 01:00 BP 111 / 62; Pulse 61; Resp 16; Pulse Ox 100% on R/A; km8 01:30 BP 102 / 55; Pulse 84; Resp 16; Pulse Ox 100% on R/A; 8 02:00 BP 94 / 59; Pulse 61; Resp 16; Pulse Ox 100% on R/A; km8 00:03 Body Mass Index 25.39 (58.97 kg, 152.4 cm) oe 00:03 Pain Scale: Adult oe MDM: 05/14 23:59 Patient medically screened. 05/15 02:13 Data reviewed: vital signs, nurses notes, lab test result(s), EKG, radiologic studies, cp CT scan, ultrasound. 02:13 Differential diagnosis: gastritis, appendicitis, viral gastroenteritis, cp gastroenteritis. I considered the following discharge prescriptions or medication management in the emergency department Medications were administered in the Emergency Department. See MAR. Counseling: I had a detailed discussion with the patient and/or guardian regarding the historical points, exam findings, and any diagnostic results supporting the discharge/admit diagnosis, lab results, radiology results, to return to the emergency department if symptoms worsen or persist or if there are any questions or concerns that arise at home. Response to treatment: the patient's symptoms have markedly improved after treatment, Nausea markedly improved, vomiting resolved and patient tolerating po fluids, and as a result, I will discharge patient. 05/15 00:18 Order name: Abo/rh Typing; Complete Time: 01:47 05/15 01:48 Interpretation: Reviewed. 05/15 00:18 Order name: Basic Metabolic Panel; Complete Time: :47 05/15 01:48 Interpretation: Reviewed. 05/15 00:18 Order name: CBC with Diff; Complete Time: 01:25 05/15 01:25 Interpretation: Normal except: WBC 11.50. 05/15 00:18 Order name: Test, Urine; Complete Time: :25 05/15 01:26 Interpretation: Reviewed. 05/15 00:18 Order name: Quantitative Hcg; Complete Time: 01:47 05/15 01:47 Interpretation: Reviewed. 05/15 00:18 Order name: Urinalysis w/ reflexes; Complete Time: 01:25 05/15 01:26 Interpretation: Normal except: [facility] Extremely Turbid; UKET TRACE; UESTR 25. cp 05/15 00:18 Order name: CT Head Brain wo Cont cp 05/15 00:58 Order name: US Transvaginal Ob cp 05/15 00:18 Order name: EKG; Complete Time: 00:19 cp 05/15 00:18 Order name: IV Saline Lock; Complete Time: 00:47 cp 05/15 00:18 Order name: Labs collected and sent; Complete Time: 00:47 cp 05/15 00:18 Order name: NPO; Complete Time: 00:26 cp 05/15 00:18 Order name: EKG - Nurse/Tech; Complete Time: 00:27 cp 05/15 01:52 Order name: PO challenge; Complete Time: 02:10 cp EC:30 Rate is 62 beats/min. Rhythm is regular. [place] interval is normal. QRS interval is normal. cp QT interval is normal. T waves are Inverted in lead aVR. Interpreted by me. Reviewed by me. Administered Medications: 00:56 Drug: NS 0.9% IV 1000 ml IV at 1 bolus Per protocol; 1000 mL bolus Route: IV; Rate: 1 km8 bolus; Site: right antecubital; 02:11 Follow up: IV Status: Completed infusion; IV Intake: 1000ml km8 00:56 Drug: Ondansetron IVP 4 mg IVP once; over 2 minutes Route: IVP; Site: right antecubital;km8 01:15 Follow up: Response: No adverse reaction 8 00:56 Drug: Famotidine IVP 20 mg IVP once; dilute with 10 mL 0.9% NaCl; give over 2 minutes km8 Route: IVP; Site: right antecubital; 01:14 Follow up: Response: No adverse reaction 8 Disposition: 05:52 Co-signature as Attending Physician, Nelson CHATTERJEE I agree with the assessment and plan sp4 of care. I reviewed the patient's care provided by the Advanced Practice Provider and agree with the diagnosis and treatment plan. Disposition Summary: 05/15/23 02:14 Discharge Ordered Notes: Location: Home cp Problem: new cp Symptoms: have improved cp Condition: Stable cp Diagnosis - Nausea with vomiting, unspecified cp - related conditions, unspecified, first trimester cp - Syncope cp Followup: cp - With: Private Physician - When: 2 - 3 days - Reason: Recheck today's complaints Discharge Instructions: - Discharge Summary Sheet cp - Care cp - Syncope cp - First Trimester of cp Forms: - Medication Reconciliation Form cp - Thank You Letter cp - Antibiotic Education cp - Prescription Opioid Use cp - Patient Portal Instructions cp - Leadership Thank You Letter cp Prescriptions: - Zofran 4 mg Oral Tablet - take 1 tablet ORAL route every 12 hours As needed; 20 tablet; Refills: 0, cp Product Selection Permitted Signatures: Dispatcher [employer] EDMS Nelson Guerra PA PA cp Potepalov, Sergey, MD MD sp4 Bhumika Abad RN RN km8 Corrections: (The following items were deleted from the chart) 05/16 00:47 05/15 00:05 Associated signs and symptoms: Pertinent positives: syncopal episode cp causing patient to hit head, now with headache, cp
[2023-05-15 02:46] VITALS: O2SAT 100
[2023-05-15 03:24] VITALS: BP 113/63; TEMP 98.6
--- NOTE | 2023-05-15 13:37 | RAD REPORT ---
EXAM DESCRIPTION: CT - Head Brain Wo Cont - 05/15/2023 1:25 am CLINICAL HISTORY: The patient is 22 years old and is Female; Headache;Syncope TECHNIQUE: Axial computed tomography images of the head/brain without intravenous contrast. Sagitt al and coronal reformatted images were created and reviewed. This CT exam was performed using one o r more of the following dose reduction techniques: automated exposure control, adjustment of the mA and/or kV according to patient size, and/or use of iterative reconstruction technique. COMPARISON: No relevant prior studies available. FINDINGS: BRAIN: Unremarkable. The john-white matter differentiation is preserved . No hemorrhag e. No significant white matter disease. No edema. No extra-axial fluid collections. VENTRICLES: Unremarkable. No ventriculomegaly. BONES/JOINTS: No acute fracture. SOFT TISSUES: Unremarkable. SINUSES: Unremarkable as visualized. No acute sinusitis. MASTOID AIR CELLS: Unremarkable as visualized. No mastoid effusion. ORBITS: Unremarkable as visualized. IMPRESSION: No acute intracranial findings. Electronically signed by: Lillie Martinez MD 05/15/2023 12:58 AM ENTRY DRIVER OPERATOR Due to temporary technical issues with the PACS/Fluency reporting system, reports are being signed by the in house radiologist without review as a courtesy to ensure prompt reporting. The interpreting r adiologist is fully responsible for the content of the report.
--- NOTE | 2023-05-15 14:19 | RAD REPORT ---
EXAM DESCRIPTION: US - Transvaginal OB - 05/15/2023 1:37 am CLINICAL HISTORY: The patient is 22 years old and is Female; TECHNIQUE: Real-time transvaginal obstetrical ultrasound of the maternal pelvis and a first trimeste r with image documentation. Transvaginal imaging was used for better evaluation of the fe tus and adnexa. COMPARISON: No relevant prior studies available. FINDINGS: GESTATION: A single intrauterine gestational sac and yolk sac are present. A pole with a crown-rump length of 0.6 cm correlating with 6 weeks 3 days is present. heart rate 133 b pm. A small hypoechoic area adjacent to the gestational sac measuring 0.4 x 0.5 cm is present. PLACENTA/AMNIOTIC FLUID: Cannot be adequately evaluated due to the early gestational age. UTERUS/CERVIX: Unremarkable. No myometrial mass. OVARIES: A left ovarian corpus luteum cyst is present. The right ovary is not well visualized. FREE FLUID: No free fluid. IMPRESSION: 1. Single IUP at 6 weeks 3 days by CRL heart rate 133 bpm. 2. Findings suggest a small subchorionic hemorrhage. Recommend close attention on follow-up. Electronically signed by: Lillie Martinez MD 05/15/2023 02:06 AM CURB SETTER Due to temporary technical issues with the PACS/Fluency reporting system, reports are being signed by the in house radiologist without review as a courtesy to ensure prompt reporting. The interpreting r adiologist is fully responsible for the content of the report.
--- NOTE | 2023-05-15 17:21 | EKG ---
Test Date: 2023-05-15 Test Time: 00:25:19 Quality Control Operator: SOLANGE MEASUREMENT RESULTS: Intervals: Rate: 62 MA: 120 QRSD: 76 QT: 388 QTc: 393 [place]: P: 24 MA: 120 QRS: 63 T: 36 INTERPRETIVE STATEMENTS: Normal sinus rhythm Normal ECG No previous ECG available for comparison Electronically Signed On 05-15-23 17:19:53 QUALITY WORKER by Silviano Grande
== END 2023-05-15 02:27 | disposition home or self-care (01) ==
LOC: ER 23:47
DX: O21.9 Vomiting of pregnancy, unspecified (principal); Z3A.01 Less than 8 weeks gestation of pregnancy
CPT/HCPCS: 96361; 93005; 85025; 81001; 80048; 36415; 86900; 81025; 86901; 84702; 70450; 76817; 96375; 96374; 99285; J2405

== ENCOUNTER 2025-04-18 06:20 | Emergency (ER) | payer BC, OTHER ==
--- OUTSIDE RECORDS SUMMARY | 2025-04-18 06:25 | XMS REPORT | Continuity of Care Document ---
Author Name Unknown Address [address] [facility] [address] [place] [address] [facility] Address [address] [facility] [address] [place] [address] Care Team Providers Care Flat Examiner Name Role Phone PCP, PATIENT DOES NOT HAVE A Primary Care Physic salima Unavailable Provider, OB Admit Generic Attending Clinician U Belkys Mcclendon Attending Clinician Unavailable JULIANNE KIRBY Attending Clinician Unavailable GREYSON HARRIS Attending Clinician Unavailable HEIDI GAN Attending Clinician UnavailHeidi Block MD Attending Clinician [phone] Julianne Kirby MD Attending Clinician [phone] Doctor Unassigned, [place] Attending Clinician U JAXON Butler Attending Clinician Rios Feng MD Attending Clinician + Vtc-Lab Attending Clinician Unavailable Brandon Munson MD Attending Clinician [phone] Deana Caicedo MD Attending Clinician [phone] DEANA CAICEDO Attending Clinician UnavailMAIKEL Lockwood Attending Clinician Esther vizcarra Poedil, [facility] Lab Main Attending Clinician UnavailJulissa Rosario MD Attending Clinician [phone] JULISSA BUITRAGO Attending Clinician Unavailable Provider, OB Admit Generic Admitting Clinician U navailable KNOW, DOES_NOT Admitting Clinician Unavailable Belkys Beltran Admitting Clinician Unavailable HEIDI GAN Admitting Clinician UnavailHeidi Block MD Admitting Clinician JULIANNE KIRBY Admitting Clinician Unavailable Payers Payer Name Policy Type Policy Number Effective Date Expirati on Date Source BCBS FED SELECT [id number] 2005 00:00:00 Problems Condition Name Condition Details Condition Category Status Onset Date Resolution Date Last Treatment Date Treating Clinician Comments Source Left breast lump Left breast lump Disease Active 01-04 00:00: 00 [facility] Allergies, Adverse Reactions, Alerts Allergy Name Allergy Type Status Severity Reaction(s) Onset Date Inactive Date Treating Clinician Comments Source No Known Allergie s DA Active U 01-01 00:00: 00 [facility] NO KNOWN ALLERGIE S Drug Class Active [facility] Social History Social Habit Start Date Stop Date Quantity Comments Source History SDOH Alcohol Frequency [facility] History SDOH Alcohol Std Drinks [facility] History SDOH Alcohol Binge [facility] History of tobacco use Cigarette Smoker [facility] Exposure to SARS-CoV-2 (event) 2022-05-12 00:00:00 2022-05-22 14:01:00 Not sure [facility] Alcohol intake 2022-05-22 00:00:00 2022-05-22 00:00:00 0 /d [facility] Tobacco use and exposure 2022-05-11 00:00:00 2022-05-11 00:00:00 Smokeless tobacco non-user [facility] Alcohol Comment 2021-09-28 00:00:00 2021-09-28 00:00:00 social [facility] Sex Assigned At 2000 00:00:00 2000 00:00:00 [facility] Smoking Status Start Date Stop Date Source Smokes tobacco daily 2022-05-11 00:00:00 [facility] Never smoked tobacco [facility] Medications Ordered Medication Name Filled Medication Name Start Date Stop Date Current Medication? Ordering Clinician Indication Dosage Frequency Signature (SIG) Comments Components Source lactated ringers IV infusion 1,000 mL 2021-07 18:00: 00 Yes 1000mL at 75 mL/hr, 1,000 mL, IV Infusion, CONTINUOUS , Starting on Sat05/15/22 at 1200, Until Discontinu ed, Routine, PACU [facility] FENTanyl PF (SUBLIMAZE (PF)) injection 25 mcg 2021-07 17:51: 01 Yes 25ug 25 mcg, Slow IV Push, Q5MIN PRN, 4 doses, Starting on Sat05/15/22 at 1151, Until Discontinu ed, Routine, Pain (scale 4-6), PACU [facility] ondansetron (ZOFRAN (PF)) injection 4 mg 2021-07 17:51: 01 Yes 4mg 4 mg, Slow IV Push, PRN, 1 dose, Starting on Sat05/15/22 at 1151, Until Discontinu ed, Routine, Nausea and Vomiting (N/V), PACU [facility] water for irrigation irrigation solution 2021-07 15:49: 00 Yes PRN, Starting on Sat05/15/22 at 0949, Until Discontinu ed, Routine, Intra-op [facility] hydrogen peroxide 3 % topical solution 2021-07 15:49: 00 Yes PRN, Starting on Sat05/15/22 at 0949, Until Discontinu ed, Routine, Intra-op [facility] bupivacaine (preserv free) 0.5% (SENSORCAIN E MPF) 0.5 % (5 mg/mL) 30 mL, NaCl 0.9% (NS) 30 mL 2021-07 15:49: 00 Yes PRN, Starting on Sat05/15/22 at 0949, Intra-op [facility] lactated ringers IV infusion 1,000 mL 2021-07 14:00: 00 05-15 14:13 :00 No 1000mL at 42 mL/hr, 1,000 mL, IV Infusion, ONCE, 1 dose, On Sat05/15/22 at 0800, Routine, DSU Pre-op [facility] acetaminoph en 500 mg tablet 2021-07 00:00: 00 Yes [id number] 1000mg Take 2 tablets by mouth every 8 (eight) hours. [facility] celecoxib (CELEBREX) 100 mg capsule 2021-07 00:00: 00 Yes [id number] 100mg Take 1 capsule by mouth in the morning and 1 capsule in the evening. Take with meals. [facility] HYDROcodone -acetaminop hen 5-325 mg tablet 2021-07 00:00: 00 05-23 05:59 :00 No [id number] 1{tbl} Take 1 tablet by mouth every 6 (six) hours as needed for Pain (scale 4-6) or Pain (scale 7-10) for up to 7 days. Indication s: acute pain [facility] norethindro ne-ethinyl estradiol (LOESTRIN 07/20, ,) 1-20 mg-mcg per tablet 12-29 00:00: 00 Yes [id number] 1{tbl} Take 1 tablet by mouth daily. [facility] metroNIDAZO LE 500 mg tablet 09-29 00:00: 00 Yes [id number] 500mg Take 1 tablet by mouth every 12 (twelve) hours. [facility] ISOtretinoi n 30 mg capsule 09-15 00:00: 00 Yes 30mg Take 1 capsule by mouth daily. [facility] etonogestre l (NEXPLANON) 68 mg implant 12-05 00:00: 00 12-29 00:00 :00 No 68mg 68 mg by Subdermal route once now. [facility] PANOXYL 10 % external wash 09-22 00:00: 00 Yes [facility] Vital Signs Vital Name Observation Time Observation Value Comments S forrest Systolic blood pressure 2022-05-22 20:19:00 98 mm[Hg] [facility] Diastolic blood pressure 2022-05-22 20:19:00 67 mm[Hg] [facility] Heart rate 2022-05-22 20:19:00 81 /min Un[facility] Body temperature 2022-05-22 20:19:00 36.61 Liudmila [facility] Respiratory rate 2022-05-22 20:19:00 16 /min [facility] Body height 2022-05-22 20:19:00 152.4 cm [facility] Body weight 2022-05-22 20:19:00 54.795 kg [facility] BMI 2022-05-22 20:19:00 23.59 kg/m2 [facility] Oxygen saturation in Arterial blood by Pulse oximetry 2022-05-22 20:19:00 99 /min [facility] Heart rate 2022-05-15 19:34:00 71 /min [facility] Respiratory rate 2022-05-15 19:34:00 18 /min [facility] Oxygen saturation in Arterial blood by Pulse oximetry 2022-05-15 19:34:00 99 /min [facility] Systolic blood pressure 2022-05-15 19:28:00 98 mm[Hg] [facility] Diastolic blood pressure 2022-05-15 19:28:00 61 mm[Hg] [facility] Body temperature 2022-05-15 18:02:00 37.11 Liudmila [facility] Body height 2022-05-11 14:39:00 152.4 cm [facility] Body weight 2022-05-11 14:39:00 55.9 kg [facility] BMI 2022-05-11 14:39:00 24.07 kg/m2 [facility] Systolic blood pressure 2022-05-15 13:59:00 114 mm[Hg] [facility] Diastolic blood pressure 2022-05-15 13:59:00 85 mm[Hg] [facility] Heart rate 2022-05-15 13:59:00 71 /min [facility] Body temperature 2022-05-15 13:59:00 36.67 Liudmila [facility] Respiratory rate 2022-05-15 13:59:00 17 /min [facility] Oxygen saturation in Arterial blood by Pulse oximetry 2022-05-15 13:59:00 98 /min [facility] Body height 2022-05-11 14:39:00 152.4 cm [facility] Body weight 2022-05-11 14:39:00 55.9 kg [facility] BMI 2022-05-11 14:39:00 24.07 kg/m2 [facility] Systolic blood pressure 2022-05-08 19:53:00 101 mm[Hg] [facility] Diastolic blood pressure 2022-05-08 19:53:00 68 mm[Hg] [facility] Heart rate 2022-05-08 19:53:00 69 /min [facility] Body temperature 2022-05-08 19:53:00 36.56 Liudmila [facility] Respiratory rate 2022-05-08 19:53:00 16 /min [facility] Body height 2022-05-08 19:53:00 152.4 cm [facility] Body weight 2022-05-08 19:53:00 55.883 kg [facility] BMI 2022-05-08 19:53:00 24.06 kg/m2 [facility] Oxygen saturation in Arterial blood by Pulse oximetry 2022-05-08 19:53:00 97 /min [facility] Systolic blood pressure 2021-12-29 13:43:00 103 mm[Hg] [facility] Diastolic blood pressure 2021-12-29 13:43:00 68 mm[Hg] [facility] Heart rate 2021-12-29 13:43:00 62 /min [facility] Body temperature 2021-12-29 13:43:00 36.83 Liudmila [facility] Respiratory rate 2021-12-29 13:43:00 18 /min [facility] Body height 2021-12-29 13:43:00 152.4 cm [facility] 2021-12-29 13:43:00 56.7 kg [facility] BMI 2021-12-29 13:43:00 24.41 kg/m2 [facility] Procedures Procedure Date / Time Performed Performing Clinicia n Source [id number] 2024-01-02 00:00:00 CHAKR.07 [facility] [id number] 2024-01-02 00:00:00 CHAKR.07 [facility] [id number] 2024-01-02 00:00:00 CHAKR.07 [facility] [id number] 2024-01-02 00:00:00 CHAKR.07 [facility] [id number] 2024-01-02 00:00:00 CHAKR.07 [facility] [id number] 2024-01-02 00:00:00 LAINEYKR.07 [facility] FL TIME OR (NON-REPORTABLE) 2022-05-15 17:04:13 Heidi Gan [facility] FL TIME OR (NON-REPORTABLE) 2022-05-15 17:04:13 Heidi Gan [facility] BREAST LUMPECTOMY 2022-05-15 15:06:00 Heidi Gan [facility] DAY SURGERY - ADC 2022-05-15 06:01:00 Doctor Anneliese ssigned, [place] [facility] CONSENT/REFUSAL FOR DIAGNOSIS AND TREATMENT 2022-05-09 06:01:00 Doctor Unassigned, [place] [facility] DISCLOSURE AND CONSENT, MEDICAL AND SURGICAL PROCEDURES 2022-05-09 06:01:00 Doctor Unassigned, [place] [facility] CONSENT/REFUSAL FOR DIAGNOSIS AND TREATMENT 2022-05-09 06:01:00 Doctor Unassigned, [place] [facility] DISCLOSURE AND CONSENT, MEDICAL AND SURGICAL PROCEDURES 2022-05-09 06:01:00 Doctor Unassigned, [place] [facility] DISCLOSURE AND CONSENT, MEDICAL AND SURGICAL PROCEDURES 2022-05-08 06:01:00 Doctor Unassigned, [place] [facility] DISCLOSURE AND CONSENT, MEDICAL AND SURGICAL PROCEDURES 2022-05-08 06:01:00 Doctor Unassigned, [place] [facility] Encounters Start Date/Time End Date/Time Encounter Type Admission Type Attending [facility] Care Facility Care Department Encounter ID Source 2024-01-01 00:00:00 Inpatient CLINT Rabago [facility] LD [id number] [facility] 2023-11-05 13:00:00 Inpatient Belkys Fish [facility] [id number] [facility] 2024-01-02 03:12:00 2024-01-04 13:24:00 Inpatient Belkys Quintana [facility] OBPP [id number] [facility] 2022-12-21 15:00:00 2022-12-21 15:00:00 Outpatient JULIANNE MARTINEZ [facility] [id number] [facility] 2022-10-18 12:14:02 2022-10-18 12:14:02 Outpatient [facility] [id number] [facility] 2022-10-15 13:24:50 2022-10-15 13:24:50 Outpatient [facility] [id number] [facility] 2022-05-22 14:15:00 2022-05-22 15:03:07 Outpatient HEIDI CAMEJO [facility] [id number] [facility] 2022-05-22 14:15:00 2022-05-22 15:03:07 Office Visit Heidi Gan [facility] 1.2.840.114 350.1.13.10 4.2.7.2.686 [id number] [facility] 2022-05-22 00:00:00 2022-05-22 00:00:00 Letter (Out) Heidi Gan [facility] 1.2.840.114 350.1.13.10 4.2.7.2.686 [id number] [facility] 2022-05-15 07:51:00 2022-05-15 13:50:00 Outpatient HEIDI CAMEJO [facility] [id number] [facility] 2022-05-15 07:51:00 2022-05-15 13:50:00 Hospital Encounter Heidi Gan [facility] [place] 1.2.840.114 350.1.13.10 4.2.7.2.686 [id number] [facility] 2022-05-15 09:17:00 2022-05-15 11:41:00 Surgery Heidi Gan [facility] [place] 1.2.840.114 350.1.13.10 4.2.7.2.686 [id number] [facility] 2022-05-08 13:30:00 2022-05-08 15:19:14 Outpatient R HEIDI GAN [facility] [id number] [facility] 2022-05-08 13:30:00 2022-05-08 15:19:14 Office Visit Heidi Gan [facility] 1.2.840.114 350.1.13.10 4.2.7.2.686 [id number] [facility] 2021-12-29 08:00:00 2021-12-29 09:19:41 Office Visit Mirta Julianne Ruiz [facility] 1.2.840.114 350.1.13.10 4.2.7.2.686 [id number] [facility] 2021-12-29 08:00:00 2021-12-29 09:19:41 Outpatient R JULIANNE KIRBY [facility] [id number] [facility] 2021-12-29 08:00:00 2021-12-29 08:00:00 Outpatient R MIRTA [facility] [id number] [facility] 2021-12-29 00:00:00 2021-12-29 00:00:00 Orders Only Doctor Unassigned, [place] [facility] 1.2.840.114 350.1.13.10 4.2.7.2.686 [id number] [facility] 2021-10-23 10:00:00 2021-10-23 10:00:00 Outpatient R [facility] [id number] [facility] 2021-10-17 00:00:00 2021-10-17 00:00:00 Telephone Addonna Julianne Ruiz [facility] 1.2.840.114 350.1.13.10 4.2.7.2.686 [id number] [facility] 2021-10-11 09:00:00 2021-10-11 09:00:00 Outpatient R JULIANNE KIRBY [facility] [id number] [facility] 2021-09-29 00:00:00 2021-09-29 00:00:00 Case Management Tricia Kirbyian Sara [facility] 1.2.840.114 350.1.13.10 4.2.7.2.686 [id number] [facility] 2021-09-28 10:30:00 2021-09-28 11:34:56 Outpatient R JULIANNE KIRBY [facility] [id number] [facility] 2021-09-28 10:30:00 2021-09-28 11:34:56 Office Visit Julianne Kirby [facility] 1.2.840.114 350.1.13.10 4.2.7.2.686 [id number] [facility] 2021-09-28 10:30:00 2021-09-28 11:34:56 [facility] [id number] [facility] 2021-09-28 10:30:00 2021-09-28 11:00:00 Office Visit Julianne Kirby [facility] 1.2.840.114 350.1.13.10 4.2.7.2.686 [id number] [facility] 2021-09-28 10:30:00 2021-09-28 10:30:00 Outpatient R JULIANNE KIRBY [facility] [id number] [facility] 2021-09-28 10:30:00 2021-09-28 10:30:00 Outpatient R JULIANNE KIRBY [facility] [id number] [facility] 2021-09-28 00:00:00 2021-09-28 00:00:00 Letter (Out) Julianne Kirby [facility] 1.2.840.114 350.1.13.10 4.2.7.2.686 [id number] [facility] 2021-09-07 14:00:00 2021-09-07 14:00:00 Outpatient R MIRTA [facility] [id number] [facility] 2020-12-23 09:00:00 2020-12-23 09:00:00 Outpatient R MIRTA JULIANNE [facility] [id number] [facility] 2020-12-19 09:00:00 2020-12-19 09:00:00 Outpatient R MIRTA JULIANNE [facility] [id number] [facility] 2020-10-20 10:45:00 2020-10-20 10:45:00 Outpatient R JAXON ETIENNE [facility] [id number] [facility] 2020-10-19 11:00:43 2020-10-19 11:39:59 Office Visit Julianne Kirby [facility] 1.2.840.114 350.1.13.10 4.2.7.2.686 [id number] [facility] 2020-10-19 11:00:00 2020-10-19 11:00:00 Outpatient R JULIANNE KIRBY [facility] [id number] [facility] 2020-09-15 00:00:00 2020-09-15 00:00:00 [facility]phone [facility] 1.840.114 350.1.13.10 4.2.7.2.686 [id number] [facility] 2020-09-15 00:00:00 2020-09-15 00:00:00 Telephone [facility] 1..114 350.1.13.10 4.2.7.2.686 [id number] [facility] 2020-09-12 14:48:50 2020-09-12 15:03:50 Raveler Visit Vtc-Lab Brandon Munson [facility] 1..114 350.1.13.10 4.2.7.2.686 [id number] [facility] 2020-09-12 13:49:53 2020-09-12 14:45:23 Office Visit Rios Andrews Bernard [facility] 1..114 350.1.13.10 4.2.7.2.686 [id number] [facility] 2020-09-12 14:00:00 2020-09-12 14:00:00 Outpatient R [facility] [id number] [facility] 2020-08-11 16:37:19 2020-08-11 16:52:19 [place]aveler Visit Vtc-Lab Deana Caicedo [facility] 1..114 350.1.13.10 4.2.7.2.686 [id number] [facility] [id number] [facility] 2020-08-11 16:30:00 2020-08-11 16:30:00 Outpatient Angy [facility] [id number] [facility] 2020-08-05 10:00:00 2020-08-05 10:00:[address] [facility] [id number] [facility] 2020-08-04 15:40:00 2020-08-04 15:40:00 Outpatient DEANA JARRETT [facility] [id number] [facility] 2020-08-04 00:00:00 2020-08-04 00:00:00 Orders Only Doctor Unassigned, [place] [facility] 1.2.840.114 350.1.13.10 4.2.7.2.686 [id number] [facility] 2020-03-01 14:16:02 2020-03-01 14:31:02 Office Visit Heidi Gan [facility] 1..840.114 350.1.13.10 4.2.7.2.686 [id number] [facility] 2020-03-01 14:15:00 2020-03-01 14:15:00 Outpatient R HEIDI GAN [facility] [id number] [facility] 2020-02-23 14:00:00 2020-02-23 14:00:00 Outpatient R HEIDI GAN [facility] [id number] [facility] 2020-02-16 13:35:47 2020-02-16 15:46:51 Office Visit Heidi Gan [facility] 1.2.840.114 350.1.13.10 4.2.7.2.686 [id number] [facility] 2020-02-16 13:30:00 2020-02-16 13:30:00 Outpatient R HEIDI GAN [facility] [id number] [facility] 2020-02-16 00:00:00 2020-02-16 00:00:00 Orders Only Doctor Unassigned, [place] [facility] 1.2840.114 350.1.13.10 4.2.7.2.686 [id number] [facility] 2020-02-09 16:00:00 2020-02-09 16:00:00 Outpatient R CATRACHITAPRABHJOT HEIDI [facility] [id number] [facility] 2020-01-28 13:30:00 2020-01-28 13:30:00 Outpatient R MAIKEL AZEVEDO [facility] [id number] [facility] 2020-01-05 14:00:00 2020-01-05 14:00:00 Outpatient R MIRTA JULIANNE [facility] [id number] [facility] 2020-01-05 08:04:46 2020-01-05 08:34:46 Telemedici ne Visit AdJulianne howell [facility] 1.840.114 350.1.13.10 4.2.7.2.686 [id number] [facility] 2019-12-24 11:30:20 2019-12-24 23:59:00 Outpatient R TONYDONNA JULIANNE [facility] [id number] [facility] 2019-12-24 11:30:00 2019-12-24 23:59:00 Hospital Encounter TonyJulianne howell [facility] 1.2.114 350.1.13.10 4.2.7.2.686 [id number] [facility] 2019-12-17 00:00:00 2019-12-17 00:00:[address] [facility] 1.2840.114 350.1.13.10 4.2.7.2.686 [id number] [facility] 2019-12-16 00:00:00 2019-12-16 00:00:00 Case Management Julianne Kirby [facility] 1.284.114 350.1.13.10 4.2.7.2.686 [id number] [facility] 2019-12-15 17:00:06 2019-12-15 17:15:06 [place]aveler Visit Pob, Adc Lab Main Julissa Buitrago Vivian L [facility] 1.2840.114 350.1.13.10 4.2.7.2.686 [id number] [facility] 2019-12-15 15:21:57 2019-12-15 16:43:33 Office Visit Julianne Kirby [facility] 1.2840.114 350.1.13.10 4.2.7.2.686 [id number] [facility] 2019-12-15 15:00:00 2019-12-15 15:00:00 Outpatient R JULISSA BUITRAGO [facility] [id number] [facility] 2019-12-15 00:00:00 2019-12-15 00:00:00 Orders Only Doctor Unassigned, [place] [facility] 1.284.114 350.1.13.10 4.2.7.2.686 [id number] [facility] 2019-10-06 00:00:00 2019-10-06 00:00:00 Telephone Julissa Buitrago [facility] 1.2.840.114 350.1.13.10 4.2.7.2.686 [id number] [facility] Results Test Description Test Time Test Comments Results Result Co mments Source [id number] 19:55:00* Test Item Value Reference Range Interpretation Comme nts GLUBED (test code = GLUBED) 81 mg/dL 65-110 N [id number] 15:54:00* Test Item Value Reference Range Interpretation Comme nts GLUBED (test code = GLUBED) 82 mg/dL 65-110 N [id number] 11:53:00* Test Item Value Reference Range Interpretation Comme nts GLUBED (test code = GLUBED) 88 mg/dL 65-110 N [id number] 08:29:00* Test Item Value Reference Range Interpretation Comme nts GLUBED (test code = GLUBED) 90 mg/dL 65-110 N AB [id number] 04:51:00* Test Item Value Reference Range Interpretation Comme nts AB TREPONEMA (test code = TREPAB) NONREACTIVE NONREACTIVE AB HIV 1 04:51:00* Test Item Value Reference Range Interpretation Comme nts AB HIV 1 2 (test code = [id number]) NONREACTIVE NONREACTIVE Done by [employer] HIV Ag/Ab Combo Screen AG HEPATITIS B [id number] 04:51:00* Test Item Value Reference Range Interpretation Comme nts AG HEPATITIS B SURFACE (test code = HBSAG) NONREACTIVE NONREACTIVE AB HEPATITIS C [id number] 04:51:00* Test Item Value Reference Range Interpretation Comme nts AB HEPATITIS C (test code = HCVAB) NONREACTIVE NONREACTIVE SIGNAL TO CUTOFF (test code = CUTOFF) <0.02 <0.80 N CBC W/AUTO [id number] 03:39:00* Test Item Value Reference Range Interpretation Comme nts WHITE BLOOD CELL (test code = WBC) 10.9 K/mm3 6.5-12.3 N RED BLOOD CELL (test code = RBC) 3.58 M/mm3 3.51-4.69 N HEMOGLOBIN (test code = HGB) 10.5 g/dL 10.1-13.8 N HEMATOCRIT (test code = HCT) 32.0 % 32.5-41.8 L MEAN CELL VOLUME (test code = MCV) 89.4 fL 84.6-96.6 N MEAN CELL HGB (test code = MCH) 29.3 pg 27.3-33.9 N MEAN CELL HGB CONCETRATION ( test code = MCHC) 32.8 gm/dL 32.0-34.2 N RED CELL DISTRIBUTION WIDTH (test code = RDW) 12.9 % 12.2-16.3 N PLATELET COUNT (test code = PLT) 249 K/mm3 134-363 N MEAN PLATELET VOLUME (test c ode = MPV) 11.5 fL 9.2-12.7 N NEUTROPHIL % (test code = NT%) 61.2 % 57.9-77.3 N LYMPHOCYTE % (test code = LY%) 30.2 % 14.5-29.7 H MONOCYTE % (test code = MO%) 7.1 % 3.6-10.2 N EOSINOPHIL % (test code = EO%) 0.5 % 0.0-3.0 N BASOPHIL % (test code = BA%) 0.3 % 0.1-0.9 N NEUTROPHIL # (test code = NT#) 6.7 K/mm3 LYMPHOCYTE # (test code = LY#) 3.3 K/mm3 MONOCYTE # (test code = MO#) 0.8 K/mm3 EOSINOPHIL # (test code = EO#) 0.05 K/mm3 BASOPHIL # (test code = BA#) 0.0 K/mm3 Notes Date/Time Note Provider Source 2024-01-03 19:34:00 [facility] ([facility]) OB Postpart Progr Note REPORT#:[id number] REPORT STATUS: Signed REPORT INITIALIZATION DATE:01/03/24 TIME: 1933 PATIENT: MASTER ABDI UNIT #: [id number] ROOM/BED: : 00 AGE: 23 SEX: F ATTEND: Belkys Beltran MD ADM AUTHOR: [place]a [place] MD REPT SERVICE DT/TIME: 01/03/241933 * ALL edits or amendments must be made on the electronic/computer document * Subjective Subjective Admission EGA: Weeks: 40 Days: 1 Status/Day: post (day #1) Patient reports: Comments: Feels well, minimal pain/cramping. Ambulating and voiding without issue. No fever/chills. Objective Nursing Documentation Review Nursing Data: The data set between the solid lines has been imported from nursing documentation. Any exceptions have been noted below under Provider comments. Feeding preference: Post hemorrhage risk score: MedRisk Provider comments on imported nursing data: [] General VS: Vital Signs: Date Time Temp Pulse Resp B/P B/P Pulse O2 O2 Flow FiO2 Mean Ox Delivery Rate 01/02 1620 79.0 07 1620 98.3 81 18 101/67 96 07/05 1211 97.0 07/05 1211 98.7 99 18 125/84 07/05 0732 73.0 07/05 0732 98.2 67 17 97/62 98 07/05 0427 70.0 07/05 0427 98.1 82 18 95/58 98 07/04 2342 85.0 07/04 2342 88 108/70 07/04 2327 93.0 07/04 2327 97 118/78 07/04 2313 94.0 07/04 2313 116 121/79 07/04 2305 76.0 07/04 2305 84 108/61 07/04 2242 87.0 07/04 2242 102 113/71 07/04 2228 86.0 07/04 2228 88 108/72 07/04 2212 81.0 07/04 2212 111 103/67 07/04 2157 91.0 07/04 2157 110 112/82 0704 2142 94.0 07/ 2142 99.1 103 17 112/82 0704 2127 89.0 07/04 2127 113 20 113/74 01/01 2113 81.0 01/01 2113 99.5 108 22 113/66 01/01 2059 107.0 01/01 2059 162 133/94 01/01 2047 80.0 01/01 2047 96 116/61 01/01 2029 73.0 01/01 2029 87 103/55 01/01 2013 79.0 01/01 2013 88 109/61 01/01 1958 89.0 01/01 1958 118 120/71 01/013 90.0 01/01 1943 96 117/77 PATIENT WEIGHT: Weight (lb): 148 Weight (oz): Weight (kg): 67.300 Physical Exam Lungs: respirations non-labored Neuro: Exam: alert, oriented x3, normal speech Abdomen: soft, no abnormal tenderness, no guarding Uterus: firm, involution appropriate, non-tender Lacerations: Perineal laceration(s): bilateral labial and hymenal Lower extremities: Edema: trace Diagnosis, Assessment Plan Diagnosis, Assessment Plan Assessment: nml progress, breast feeding w/o diff, acute blood loss anemia Plan: routine care, circumcision today, discharge tomorrow, IV iron infusion x1 ordered at 1938 RPT #:[id number] END OF REPORT [facility] 2024-01-02 21:27:00 [facility] ([facility]) OB Delivery Note REPORT#:[id number] REPORT STATUS: Signed REPORT INITIALIZATION DATE:01/02/24 TIME: 2126 PATIENT: MASTER ABDI UNIT #: [id number] ROOM/BED: [address] : 00 AGE: 23 SEX: F ATTEND: Belkys Beltran MD ADM AUTHOR: Veronica Mills MD REPT SERVICE DT/TIME: 01/02/242126 * ALL edits or amendments must be made on the electronic/computer document * OB Delivery Nursing Documentation Review Nursing data: The data set between the solid lines has been imported from nursing documentation. Any exceptions have been noted below under Provider comments. _ ROM date: 01/02/24 ROM time: 1430 Membranes rupture method: AROM Amniotic fluid color: Clear Amniotic fluid amount: Steroids prior to arrival: Antibiotic prophylaxis given: Post hemorrhage risk score: LowRisk Delivery date infant A: Delivery time A: Birthweight (gm) A: Weight (lb) A: Weight (oz) infant A: Gender infant A: 1 minute A: 5 minutes A: 10 minutes infant A: Cord pH obtained A: Vacuum time A: Vacuum # pulls A: Vacuum # popoffs A: QBL at delivery: __ Provider comments on imported nursing data: [] Pre-delivery GBS status: GBS status: negative [place] evaluation at delivery: NRP certified personnel Admission EGA: Weeks: 40 Days: 1 Blood Loss/Details Blood loss at delivery: <1K: no sx hypovol=no hem QBL at delivery (ml's): 682 Baby A Information Baby A information Delivery date: 01/02/24 Delivery time: 2102 status: live born Wt of baby: not yet available Gender: male 1 minute: 8 5 minutes: 9 Presentation: vertex Nuchal cord Baby A Nuchal cord: no Vaginal Delivery Vaginal Delivery Vaginal delivery: Labor: induced Medications/Devices used: oxytocin, cook balloon Amniotic fluid: clear Anesthesia type: epidural anesthesia Laceration repair: 2-0 suture (vicryl), 3-0 suture (vicryl) Placenta: spontaneous, intact Count: correct Mother's condition: mother stable 's condition: stable in room Lacerations: Perineal laceration(s): bilateral labial and hymenal Extraction details OVD performed: no Shoulder dystocia present: no Additional comments: Maternal temperature of 101.2 recorded felt to be erroneous as no or maternal tachycardia noted and taken axillary, immediate recheck was 100 F (and 99.5 F at delivery). Baby without a fever at time of delivery, will closely monitor for further s/sx of infection but no diagnosis of chorioamnionitis made) . Delivery otherwise uncomplicated at 2130 RPT #:[id number] END OF REPORT [facility] 2024-01-02 18:29:00 [facility] ([facility]) OB Intrapart Prog Note REPORT#:[id number] REPORT STATUS: Signed REPORT INITIALIZATION DATE:01/02/24 TIME: 1828 PATIENT: MASTER ABDI UNIT #: [id number] ROOM/BED: [address] : 00 AGE: 23 SEX: F ATTEND: Belkys Beltran MD ADM AUTHOR: Veronica Mills MD REPT SERVICE DT/TIME: 01/02/241828 * ALL edits or amendments must be made on the electronic/computer document * Subjective Subjective Comments: more pain and pressure Objective Nursing Documentation Review Nursing data: The data set between the solid lines has been imported from nursing documentation. Any exceptions have been noted below under Provider comments. __ ROM date: ROM time: __ Provider comments on imported nursing data: [] General VS: Last Documented: Result Date Time B/P Mean 93.0 01/01 1658 B/P 126/76 01/01 1658 Pulse 82 01/01 1658 Temp 98.3 01/01 1200 Resp 17 01/01 0745 Vital Signs Date Temp Pulse Resp B/P B/P Mean Pulse Ox FiO2 01/01 98.3 61-93 17 90-150/54-78 66.0-97.0 PATIENT WEIGHT: Weight (lb): 148 Weight (oz): Weight (kg): 67.300 Objective Cervical/ exam: Dilatation (cm): 9/100/+1 @ 1800 [address] FHR Evaluation Baby A: Baby A baseline: 125 bpm Baby A variability: moderate 6-25 bpm (periods of minimal) Baby A accelerations: 15 X 15 Baby A decelerations: variable (intermittent) Baby A FHR category: category 2 (overall reassuring) Diagnosis, Assessment Plan Assessment: normal FHR pattern, normal progress of labor, stable, doing well Plan: anticipate vag delivery, continue labor induction, epidural anesthesia at 1830 RPT #:[id number] END OF REPORT [facility] 2024-01-02 14:43:00 [facility] ([facility]) OB Intrapart Prog Note REPORT#:[id number] REPORT STATUS: Signed REPORT INITIALIZATION DATE:01/02/24 TIME: 1443 PATIENT: MASTER ABDI UNIT #: [id number] ROOM/BED: [address] : 00 AGE: 23 SEX: F ATTEND: Belkys Beltran MD ADM AUTHOR: Veronica Mills MD REPT SERVICE DT/TIME: 01/02/24 1443 * ALL edits or amendments must be made on the electronic/computer document * Subjective Subjective Comments: Comfortable with epidural Objective Nursing Documentation Review Nursing data: The data set between the solid lines has been imported from nursing documentation. Any exceptions have been noted below under Provider comments. __ ROM date: ROM time: __ Provider comments on imported nursing data: [] General VS: Last Documented: Result Date Time B/P Mean 88.0 01/01 1358 B/P 111/74 01/01 1358 Pulse 83 01/01 1358 Temp 98.3 01/01 1200 Resp 17 01/01 0745 Vital Signs Date Temp Pulse Resp B/P B/P Mean Pulse Ox FiO2 01/01 98.3 61-93 17 90-118/54-78 66.0-94.0 PATIENT WEIGHT: Weight (lb): 148 Weight (oz): Weight (kg): 67.300 Objective Cervical/ exam: Dilatation (cm): 5/90/-2 @ 1430, balloon removed, AROM clear fluid FHR Evaluation Baby A: Baby A baseline: 120 bpm Baby A variability: moderate 6-25 bpm (periods of minimal) Baby A accelerations: 15 X 15 Baby A decelerations: variable (intermittent) Baby A FHR category: category 2 Result Findings/Data: Laboratory Tests: 01/01 01/01 01/01 1150 8244 0317 Chemistry POC Glucose (65 - 110 mg/dL) 88 90 Hematology WBC (6.5 - 12.3 K/mm3) 10.9 RBC (3.51 - 4.69 M/mm3) 3.58 Hgb (10.1 - 13.8 g/dL) 10.5 Hct (32.5 - 41.8 %) 32.0 L MCV (84.6 - 96.6 fL) 89.4 MCH (27.3 - 33.9 pg) 29.3 MCHC (32.0 - 34.2 gm/dL) 32.8 RDW (12.2 - 16.3 %) 12.9 Plt Count (134 - 363 K/mm3) 249 MPV (9.2 - 12.7 fL) 11.5 Neut % (Auto) (57.9 - 77.3 %) 61.2 Lymph % (Auto) (14.5 - 29.7 %) 30.2 H [place] % (Auto) (3.6 - 10.2 %) 7.1 Eos % (Auto) (0.0 - 3.0 %) 0.5 Baso % (Auto) (0.1 - 0.9 %) 0.3 Neut # (Auto) (K/mm3) 6.7 Lymph # (Auto) (K/mm3) 3.3 [place] # (Auto) (K/mm3) 0.8 Eos # (Auto) (K/mm3) 0.05 Baso # (Auto) (K/mm3) 0.0 Serology Treponema pallidum Ab (NONREACTIVE) NONREACTIVE Hep Bs Antigen (NONREACTIVE) NONREACTIVE Hepatitis C Antibody (NONREACTIVE) NONREACTIVE Hep C Ab Signal/Cutoff (<0.80) <0.02 HIV 1 2 Antibody (NONREACTIVE) NONREACTIVE Diagnosis, Assessment Plan Assessment: normal FHR pattern, latent phase labor, stable, doing well Plan: anticipate vag delivery, continue labor induction, epidural anesthesia at 1444 RPT #:[id number] [facility] 11:03:00 [facility] ([facility]) OB Intrapart Prog Note REPORT#:[id number] REPORT STATUS: Signed REPORT INITIALIZATION DATE:01/02/24 TIME: 110 PATIENT: MASTER ABDI UNIT #: [id number] ROOM/BED: [address] : 00 AGE: 23 SEX: F ATTEND: Belkys Beltran MD ADM AUTHOR: Veronica Mills MD REPT SERVICE DT/TIME: 01/02/24 110 * ALL edits or amendments must be made on the electronic/computer document * Subjective Subjective Comments: Comfortable with epidural Objective Nursing Documentation Review Nursing data: The data set between the solid lines has been imported from nursing documentation. Any exceptions have been noted below under Provider comments. __ ROM date: ROM time: __ Provider comments on imported nursing data: [] General VS: Last Documented: Result Date Time B/P Mean 70.0 01/01 957 B/P 93/58 01/01 0957 Pulse 93 01/01 09 Temp 98.3 01/01 0745 Resp 17 01/01 745 Vital Signs Date Temp Pulse Resp B/P B/P Mean Pulse Ox FiO2 01/01 98.3 65-93 17 90-118/54-78 66.0-94.0 PATIENT WEIGHT: Weight (lb): 148 Weight (oz): Weight (kg): 67.300 Dietitian nutrition assessment The data set between the solid lines has been imported from the dietitian's assessment. BMI Calculated: 28.90 Nutrition related diagnosis: Nutrition diagnosis details: Nutrition problem: Nutrition etiology: Nutrition signs and symptoms: Nutrition prescription: Dietitian name: Assessment completed: Objective Cervical/ exam: Dilatation (cm): 1/80/-2 @ 1000, cook balloon 80/80mL inserted atraumatically Uterine activity: Monitor: toco Frequency (description): regular Frequency (minutes): 2 FHR Evaluation Baby A: Baby A baseline: 120 bpm Baby A variability: moderate 6-25 bpm (periods of minimal) Baby A accelerations: 15 X 15 Baby A decelerations: variable (intermittent) Baby A FHR category: category 2 Result Findings/Data: Laboratory Tests: 01/01 01/01 0826 0311 Chemistry POC Glucose (65 - 110 mg/dL) 90 Hematology WBC (6.5 - 12.3 K/mm3) 10.9 RBC (3.51 - 4.69 M/mm3) 3.58 Hgb (10.1 - 13.8 g/dL) 10.5 Hct (32.5 - 41.8 %) 32.0 L MCV (84.6 - 96.6 fL) 89.4 MCH (27.3 - 33.9 pg) 29.3 MCHC (32.0 - 34.2 gm/dL) 32.8 RDW (12.2 - 16.3 %) 12.9 Plt Count (134 - 363 K/mm3) 249 MPV (9.2 - 12.7 fL) 11.5 Neut % (Auto) (57.9 - 77.3 %) 61.2 Lymph % (Auto) (14.5 - 29.7 %) 30.2 H [place] % (Auto) (3.6 - 10.2 %) 7.1 Eos % (Auto) (0.0 - 3.0 %) 0.5 Baso % (Auto) (0.1 - 0.9 %) 0.3 Neut # (Auto) (K/mm3) 6.7 Lymph # (Auto) (K/mm3) 3.3 [place] # (Auto) (K/mm3) 0.8 Eos # (Auto) (K/mm3) 0.05 Baso # (Auto) (K/mm3) 0.0 Serology Treponema pallidum Ab (NONREACTIVE) NONREACTIVE Hep Bs Antigen (NONREACTIVE) NONREACTIVE Hepatitis C Antibody (NONREACTIVE) NONREACTIVE Hep C Ab Signal/Cutoff (<0.80) <0.02 HIV 1 2 Antibody (NONREACTIVE) NONREACTIVE Diagnosis, Assessment Plan Assessment: normal FHR pattern, latent phase labor, stable, doing well Plan: anticipate vag delivery, epidural anesthesia, cook balloon placed, will initiate low-dose pitocin (gretel too frequently for cytotec), GDM: euglycemic currently, plan for accuchecks q4h in latent labor and q2h in active labor at 1107 RPT #:[id number] END OF REPORT [facility] 2024-01-02 06:37:00 [facility] ([facility]) OB Admission / H P REPORT#:[id number] REPORT STATUS: Signed REPORT INITIALIZATION DATE:01/02/24 TIME: 636 PATIENT: MASTER ABDI UNIT #: [id number] ROOM/BED: [facility] : 00 AGE: 23 SEX: F ATTEND: Belkys Beltran MD ADM AUTHOR: Belkys Beltran MD REPT SERVICE DT/TIME: 01/02/24 0637 * ALL edits or amendments must be made on the electronic/computer document * OB History Chief complaint: uterine contractions HPI: 23 y/o at 40w1d here for painful contractions, increasing throughout the night. Denies bleeding or loss of fluid. Good movement. history: : 1 Term: 0 : 0 Abortus: 0 Living children: 0 Current : Admission EGA (weeks) 40 Admission EGA (days) 1 EDC based on: ultrasound, 1st trimester Conditions of : diabetes - gestational Labs: Blood type: O Rh: positive Rubella: immune Hepatitis B: negative HIV: negative STD: negative Syphilis: currently negative GBS: negative Procedures: ultrasound, genetic testing Past History Additional Medical History: fibroadenoma Additional Surgical History: lumpectomy Additional Family History noncontributory Alcohol Use Denies EtOH use Drug Use Denies recreational drugs Smoking status for patients 13 years old or older: Never Smoker Allergies: Coded Allergies: No Known Allergies (01/02/24) Review of Systems : Reports: pelvic pain, . Denies: previous pregnancies, urgency, urinary retention, vaginal bleeding, vaginal discharge. All systems rev neg: except as marked Objective General VS: Last Documented: Result Date Time B/P Mean 88.0 01/01 0057 B/P 01/01 0057 Pulse 72 01/01 0057 Vital Signs Date Temp Pulse Resp B/P B/P Mean Pulse Ox FiO2 / 72 114/ 88.0 PATIENT WEIGHT: Weight (lb): 148 Weight (oz): Weight (kg): 67.300 Physical Exam Cardiac: regular rate Lungs: unlabored breathing Breasts: deferred Neuro: Exam: alert, oriented x3, normal speech, normal gait Abdomen: gravid, soft, no abnormal tenderness, no guarding Uterine activity: Monitor: toco Frequency (description): regular Frequency (minutes): 2 Pelvic exam: Pelvis clinically adequate: yes Vulvar lesions: none Cervical/ exam: Dilatation (cm): 1/80/-3 per MAC RN Membranes: Membranes: Intact Lower extremities: Edema: trace Baby A: Baby A baseline: 120 bpm Baby A variability: moderate 6-25 bpm (periods of minimal) Baby A accelerations: 15 X 15 Baby A decelerations: variable (intermittent) Baby A FHR category: category 2 Results Findings/Data: Laboratory Tests: 01/01 311 Hematology WBC (6.5 - 12.3 K/mm3) 10.9 RBC (3.51 - 4.69 M/mm3) 3.58 Hgb (10.1 - 13.8 g/dL) 10.5 Hct (32.5 - 41.8 %) 32.0 L MCV (84.6 - 96.6 fL) 89.4 MCH (27.3 - 33.9 pg) 29.3 MCHC (32.0 - 34.2 gm/dL) 32.8 RDW (12.2 - 16.3 %) 12.9 Plt Count (134 - 363 K/mm3) 249 MPV (9.2 - 12.7 fL) 11.5 Neut % (Auto) (57.9 - 77.3 %) 61.2 Lymph % (Auto) (14.5 - 29.7 %) 30.2 H [place] % (Auto) (3.6 - 10.2 %) 7.1 Eos % (Auto) (0.0 - 3.0 %) 0.5 Baso % (Auto) (0.1 - 0.9 %) 0.3 Neut # (Auto) (K/mm3) 6.7 Lymph # (Auto) (K/mm3) 3.3 [place] # (Auto) (K/mm3) 0.8 Eos # (Auto) (K/mm3) 0.05 Baso # (Auto) (K/mm3) 0.0 Serology Treponema pallidum Ab (NONREACTIVE) NONREACTIVE Hep Bs Antigen (NONREACTIVE) NONREACTIVE Hepatitis C Antibody (NONREACTIVE) NONREACTIVE Hep C Ab Signal/Cutoff (<0.80) <0.02 HIV 1 2 Antibody (NONREACTIVE) NONREACTIVE Diagnosis, Assessment Plan Diagnosis, Assessment Plan Free Text A P: 23 y/o at 40w1d here for augmentation of latent labor in setting of category 2 tracing at term -admit to L D - augmentation of labor. Will re-eval cervix on L D but likely cytotec for a couple doses to assist with ripening -IV pain meds or epidural prn - well-being overall reassuring -A1GDM - accuchecks q4h latent labor, q2h active -GBS neg -baby boy, breast, for circ at 0794 RPT #:[id number] END OF REPORT [facility]
[2025-04-18 07:30] LABS: Influenza A Ag Positive; Influenza B Ag Negative; SARS-CoV-2 Antigen Rapid Res Negative (Negative)
[2025-04-18] MEDS ORDERED: AZITHROMYCIN 250 MG TAB ONE (08:21)
[2025-04-18] MEDS ORDERED: IBUPROFEN 400 MG TAB ONE (08:21)
[2025-04-18] MEDS ORDERED: OSELTAMIVIR 75 MG CAP PO ONE (08:22)
--- NOTE | 2025-04-18 08:43 | EDPHYS ---
Physician Documentation [facility] Name: Marcela Gudino Age: 24 yrs Sex: Female : 2000 Arrival Date: 04/18/2025 Time: 06:20 Bed 15 Private MD: ED Physician Nelson Cook HPI: 04/18 08:35 This 24 yrs old Female presents to ER via Ambulatory with complaints of Fever, dk Headache, body aches. 08:35 The patient reports fever, that was measured at 102 degrees Fahrenheit. Onset: The dk symptoms/episode began/occurred 2 day(s) ago. Modifying factors: there are no obvious modifying factors. Associated signs and symptoms: Pertinent positives: chills, cough, myalgias, night sweats, runny nose, sinus congestion. Severity of symptoms: At their worst the symptoms were moderate. The patient has experienced similar episodes in the past, several times. 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 - Infectious Disease History:: Denies. - Social history:: Smoking status: unknown. - Family history:: not pertinent. ROS: 08:35 Constitutional: Negative for fever, chills, and weight loss, Eyes: Negative for injury, dk pain, redness, and discharge, Neck: Negative for injury, pain, and swelling, Cardiovascular: Negative for chest pain, palpitations, and edema, Abdomen/GI: Negative for abdominal pain, nausea, vomiting, diarrhea, and constipation, Back: Negative for injury and pain, : Negative for injury, bleeding, discharge, and swelling, MS/Extremity: Negative for injury and deformity, Skin: Negative for injury, rash, and discoloration, Neuro: Negative for headache, weakness, numbness, tingling, and seizure, Psych: Negative for depression, anxiety, suicide ideation, homicidal ideation, and hallucinations, Allergy/Immunology: Negative for hives, rash, and allergies, Endocrine: Negative for neck swelling, polydipsia, polyuria, polyphagia, and marked weight changes, Hematologic/Lymphatic: Negative for swollen nodes, abnormal bleeding, and unusual bruising, 08:35 ENT: Positive for nasal discharge, rhinorrhea, sinus congestion, sore throat, Exam: 08:35 Constitutional: This is a well developed, well nourished patient who is awake, alert, dk and in no acute distress. Head/Face: Normocephalic, atraumatic. Eyes: Pupils equal round and reactive to light, extra-ocular motions intact. Lids and lashes normal. Conjunctiva and sclera are non-icteric and not injected. Cornea within normal limits. Periorbital areas with no swelling, redness, or edema. Neck: Trachea midline, no thyromegaly or masses palpated, and no cervical lymphadenopathy. Supple, full range of motion without nuchal rigidity, or vertebral point tenderness. No Meningismus. Chest/axilla: Normal chest wall appearance and motion. Nontender with no deformity. No lesions are appreciated. Cardiovascular: Regular rate and rhythm with a normal S1 and S2. No gallops, murmurs, or rubs. Normal PMI, no JVD. No pulse deficits. Respiratory: Lungs have equal breath sounds bilaterally, clear to auscultation and percussion. No rales, rhonchi or wheezes noted. No increased work of breathing, no retractions or nasal flaring. Abdomen/GI: Soft, non-tender, with normal bowel sounds. No distension or tympany. No guarding or rebound. No evidence of tenderness throughout. Back: No spinal tenderness. No costovertebral tenderness. Full range of motion. Skin: Warm, dry with normal turgor. Normal color with no rashes, no lesions, and no evidence of cellulitis. MS/ Extremity: Pulses equal, no cyanosis. Neurovascular intact. Full, normal range of motion., bilateral aka Neuro: Awake and alert, GCS 15, oriented to person, place, time, and situation. Cranial nerves II-XII grossly intact. Motor strength 5/5 in all extremities. Sensory grossly intact. Cerebellar exam normal. Normal gait. Psych: Awake, alert, with orientation to person, place and time. Behavior, mood, and affect are within normal limits. 08:35 ENT: Posterior pharynx: Airway: Tonsils: swelling, erythema, Vital Signs: 06:29 BP 114 / 68; Pulse 90; Resp 18 S; Temp 98.9(O); Pulse Ox 99% on R/A; Weight 49.9 kg; ha1 Height 5 ft. 0 in. ; 07:22 BP 97 / 64; Pulse 85; Resp 17; Pulse Ox 99% ; ap3 09:15 BP 107 / 79; Pulse 89; Resp 18; Pulse Ox 99% on R/A; ap3 06:29 Body Mass Index 21.48 (49.90 kg, 152.4 cm) ha1 MDM: 07:14 Medical Screening Exam initiated dk 08:38 Differential diagnosis: viral Infection, bacterial infection, URI, bronchitis, dk pneumonia. Data reviewed: vital signs, nurses notes, lab test result(s). Consideration of Admission/Observation Escalation of care including admission/observation considered. I considered the following discharge prescriptions or medication management in the emergency department Medications were administered in the Emergency Department. See MAR. Independent interpretation of the following test(s) in the Emergency Department. Test considered but Not performed: X-ray: no cxr. Care significantly affected by the following chronic conditions: no hx. 04/18 06:43 Order name: COVID-19 Ag + Flu A+B Ag; Complete Time: 07:48 ha1 04/18 07:50 Order name: PO challenge; Complete Time: 08:25 dk Administered Medications: 08:25 Drug: Ibuprofen PO 400 mg PO once Route: PO; ap3 09:15 Follow up: Response: No adverse reaction ap3 08:25 Drug: AZITHromycin PO 500 mg PO once Route: PO; ap3 09:15 Follow up: Response: No adverse reaction ap3 08:25 Drug: Dexamethasone PO 10 mg PO once Route: PO; ap3 09:15 Follow up: Response: No adverse reaction ap3 08:25 Drug: Oseltamivir PO 75 mg PO once Route: PO; ap3 09:15 Follow up: Response: No adverse reaction ap3 Disposition Summary: 04/18/25 08:42 Discharge Ordered Notes: Location: Home dk Problem: new dk Symptoms: have improved dk Condition: Stable dk Diagnosis - Fever, unspecified dk - Influenza due to identified novel influenza A virus with other respiratory dk manifestations - Acute upper respiratory infection, unspecified dk Followup: dk - With: Private Physician - When: 2 - 3 days - Reason: Recheck today's complaints, Continuance of care, Re-evaluation by your physician Discharge Instructions: - Discharge Summary Sheet dk - Fever, Adult dk - Influenza, Adult dk - Upper Respiratory Infection, Adult dk - Cool Mist Vaporizer dk - Influenza, Adult, [id number] [facility] - Cough, Adult, [id number] [facility] Forms: - Medication Reconciliation Form [facility] - Antibiotic Education [facility] - Prescription Opioid Use [facility] - Patient Portal Instructions [facility] - Leadership Thank You Letter [facility] Prescriptions: - Tessalon Perles 100 mg Oral capsule - take 2 capsule ORAL route every 8 hours As needed; 30 capsule; Refills: 0, [facility] Product Selection Permitted - Zithromax Z-Freddy 250 mg Oral Tablet - take 1 tablet ORAL route as directed for 5 days Day 1 - take two (2) tablets [facility] one time. Day 2, 3, 4 , 5 take one (1) tablet once daily.; 6 tablet; Refills: 0, Product Selection Permitted - Tamiflu 75 mg Oral capsule - take 1 tablet ORAL route every 12 hours for 5 days; 10 tablet; Refills: 0, [facility] Product Selection Permitted Signatures: Dispatcher [employer] Nelson Fenton MD MD cha Prokisch, Amanda RN RN ap3 Taisha Molina RN RN ha1
--- NOTE | 2025-04-18 08:43 | ER ---
Nurse's Notes [facility] Name: Marcela Gudino Age: 24 yrs Sex: Female : 2000 Arrival Date: 04/18/2025 Time: 06:20 Bed 15 Private MD: Diagnosis: Fever, unspecified;Influenza due to identified novel influenza A virus with other respiratory manifestations;Acute upper respiratory infection, unspecified Presentation: 04/18 06:29 Chief complaint: Patient states: FEVER, BODY ACHES, HEADACHE, COUGH, AND NASAL ha1 CONGESTION. 06:29 Coronavirus screen: Client denies travel out of the [place] in the last 14 days. Ebola ha1 Screen: No symptoms or risks identified at this time. Initial Sepsis Screen: Does the patient meet any 2 criteria? No. Patient's initial sepsis screen is negative. Does the patient have a suspected source of infection? No. Patient's initial sepsis screen is negative. Risk Assessment: Do you want to hurt yourself or someone else? Patient reports no desire to harm self or others. Onset of symptoms was April 18, 2025. 06:29 Method Of Arrival: Ambulatory ha1 06:29 Acuity: ALILE 4 ha1 Triage Assessment: 06:40 Headache History: The patient has had previous headaches and this one is similar to ha1 previous episodes. General: Appears comfortable, Behavior is calm, cooperative. Pain: Complains of pain in HEADACHE AND BODY ACHES Pain currently is 7 out of 10 on a pain scale. Pain began gradually, Also complains of no other associated symptoms. Neuro: Level of Consciousness is awake, alert, obeys commands, Oriented to person, place, time, situation. Cardiovascular: Patient's skin is warm and dry. Respiratory: Reports cough that is NASAL CONGESTION Airway is patent Respiratory effort is even, unlabored, Respiratory pattern is regular, symmetrical. 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 - Infectious Disease History:: Denies. - Social history:: Smoking status: unknown. - Family history:: not pertinent. Screenin:42 [facility] ED Fall Risk Assessment (Adult) History of falling in the last 3 months, ha1 including since admission No falls in past 3 months (0 pts) Confusion or Disorientation No (0 pts) Intoxicated or Sedated No (0 pts) Impaired Gait No (0 pts) Mobility Assist Device Used No (0 pt) Altered Elimination No (0 pt) Score/Fall Risk Level 0 - 2 = Low Risk Oriented to surroundings, Maintained a safe environment, Educated pt \T\ family on fall prevention, incl call for assistance when getting out of bed, Hourly rounding (assess needs \T\ fall precautionary measures) done. Abuse screen: Denies threats or abuse. Denies injuries from another. Nutritional screening: No deficits noted. Tuberculosis screening: No symptoms or risk factors identified. Assessment: 07:23 General: Appears ill, Behavior is calm, cooperative, appropriate for age. Pain: ap3 Complains of pain in generalized body aches. Neuro: Level of Consciousness is awake, alert, obeys commands, Oriented to person, place, time, situation, Appropriate for age. Cardiovascular: Patient's skin is warm and dry. Respiratory: Airway is patent Respiratory effort is even, unlabored, Respiratory pattern is regular, symmetrical. 08:25 Reassessment: Patient and/or family updated on plan of care and expected duration. Pain ap3 level reassessed. Patient is alert, oriented x 3, equal unlabored respirations, skin warm/dry/pink. Vital Signs: 06:29 BP 114 / 68; Pulse 90; Resp 18 S; Temp 98.9(O); Pulse Ox 99% on R/A; Weight 49.9 kg; ha1 Height 5 ft. 0 in. ; 07:22 BP 97 / 64; Pulse 85; Resp 17; Pulse Ox 99% ; ap3 09:15 BP 107 / 79; Pulse 89; Resp 18; Pulse Ox 99% on R/A; ap3 06:29 Body Mass Index 21.48 (49.90 kg, 152.4 cm) ha1 ED Course: 06:26 Patient arrived in ED. gm2 06:29 Tanna Cisse, RN is Primary Nurse. ss12 06:40 Triage completed. ha1 06:42 Patient has correct armband on for positive identification. Bed in low position. Call ha1 light in reach. Side rails up X 1. Adult w/ patient. 07:14 Nelson Cook MD is Attending Physician. dk 07:23 Arm band placed on right wrist. ap3 07:23 No provider procedures requiring assistance completed. ap3 09:14 Provided Education on: discharge instructions . ap3 09:14 Patient did not have IV access during this emergency room visit. ap3 Administered Medications: 08:25 Drug: Ibuprofen PO 400 mg PO once Route: PO; ap3 09:15 Follow up: Response: No adverse reaction ap3 08:25 Drug: AZITHromycin PO 500 mg PO once Route: PO; ap3 09:15 Follow up: Response: No adverse reaction ap3 08:25 Drug: Dexamethasone PO 10 mg PO once Route: PO; ap3 09:15 Follow up: Response: No adverse reaction ap3 08:25 Drug: Oseltamivir PO 75 mg PO once Route: PO; ap3 09:15 Follow up: Response: No adverse reaction ap3 Medication: 09:15 VIS not applicable for this client. ap3 Outcome: 08:42 Discharge ordered by . [facility] 09:14 Discharged to home ambulatory, ap3 09:14 Condition: good 09:14 Discharge instructions given to patient, Instructed on discharge instructions, follow up and referral plans. medication usage, Demonstrated understanding of instructions, follow-up care, medications, Prescriptions given X 3, 09:16 Patient left the ED. ap3 Signatures: Nelson Cook MD MD cha Prokisch, Amanda, RN RN ap3 Taisha Molina, RN RN frances1 Teresita Kothari 2 Tanna Cisse RN RN ss12
[2025-04-18 12:44] VITALS: TEMP 98.9; O2SAT 99
[2025-04-18 12:55] VITALS: BP 107/79
== END 2025-04-18 09:16 | disposition home or self-care (01) ==
LOC: ER 06:20
DX: J10.1 Influenza due to other identified influenza virus with other respiratory manifestations (principal); Z11.52 Encounter for screening for COVID-19
CPT/HCPCS: 36415; 99283; 87428; J1100